=== PATIENT | female | born 1995 | race Caucasian/White ===

== ENCOUNTER 2016-10-18 20:36 | Emergency (ER) | payer MEDICAID, OTHER ==
--- NOTE | 2016-10-18 20:57 | EDM.PDOC ---
ED HPI GENERAL MEDICAL PROBLEM - General Chief Complaint: Gastrointestinal Problem Stated Complaint: FOOD POISONING Time Seen by Provider: 10/18/16 20:57 Source of Information: Reports: Patient - History of Present Illness INITIAL COMMENTS - FREE TEXT/NARRATIVE: HISTORY AND PHYSICAL: History of present illness: []Patient presents with nausea vomiting and intermittent loose stools over the last week, she notes that she had her IUD removed in August she has had intermittent bleeding since spotting today, no fever nausea vomiting chills sweats no chest pain shortness breath headache dizziness palpitation about a urine symptoms Review of systems: As per history of present illness and below otherwise all systems reviewed and negative. Past medical history: As per history of present illness and as reviewed below otherwise noncontributory. Surgical history: As per history of present illness and as reviewed below otherwise noncontributory. Social history: No reported history of drug or alcohol abuse. Family history: As per history of present illness and as reviewed below otherwise noncontributory. Physical exam: HEENT: Atraumatic, normocephalic, pupils reactive, negative for conjunctival pallor or scleral icterus, mucous membranes moist, throat clear, neck supple, nontender, trachea midline. Lungs: Clear to auscultation, breath sounds equal bilaterally, chest nontender. Heart: S1S2, regular, negative for clicks, rubs, or JVD. Abdomen: Soft, nondistended, nontender. Negative for masses or hepatosplenomegaly. Negative for costovertebral tenderness. Pelvis: Stable nontender. Genitourinary: Deferred. Rectal: Deferred. Extremities: Atraumatic, negative for cords or calf pain. Neurovascular unremarkable. Neuro: Awake, alert, oriented. Cranial nerves II through XII unremarkable. Cerebellum unremarkable. Motor and sensory unremarkable throughout. Exam nonfocal. Diagnostics: []Lab as below OB ultrasound Therapeutics: []Liter normal saline bolus Zofran vitamins Vaginal rest Follow-up with OB Impression: Threatened []Vomiting/diarrhea IUP 7 weeks by ultrasound AB otic type O+ EDC June 03, 2017 by ultrasound Definitive disposition and diagnosis as appropriate pending reevaluation and review of above. abdominal area Pain Score (Numeric/FACES): 5 - Related Data Allergies Allergy/AdvReac Type Severity Reaction Status Date / Time amoxicillin Allergy Hives Verified 10/18/16 21:04 Home Meds: Home Meds . 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) Other OB/BYN History: had IUD removed today in surgery Musculoskeletal History: Reports: None Neurological History: Reports: None Endocrine/Metabolic History: Reports: Obesity/BMI 30+ Hematologic History: Reports: None - Infectious Disease History Infectious Disease History: Reports: Chicken Pox - Past Surgical History HEENT Surgical History: Reports: Other (See Below) Female Surgical History: Reports: Section - History Comment History Comment: etoh "occasional" Social & Family History - Family History Family Medical History: Noncontributory - Tobacco Use Smoking Status *Q: Never Smoker - Caffeine Use Caffeine Use: Reports: Energy Drinks - Recreational Drug Use Recreational Drug Use: No ED ROS GENERAL - Review of Systems Review Of Systems: ROS reveals no pertinent complaints other than HPI. ED EXAM, GENERAL - Physical Exam Exam: See Below Course - Vital Signs Last Recorded V/S: Last Vital Signs Temp 35.9 C 10/18/16 20:55 Pulse 72 10/18/16 23:41 Resp 20 10/18/16 23:41 BP 131/81 10/18/16 23:41 Pulse Ox 99 10/18/16 23:41 - Orders/Labs/Meds Orders: Active Orders 24 hr Category Date Time Status OB Ltd 1 or More Fetus [US] Stat Exams 10/18/16 22:47 Taken CULTURE URINE [RM] Stat Lab 10/18/16 22:48 Uncollected Labs: Laboratory Tests 10/18/16 10/18/16 10/18/16 Range/Units 20:37 20:37 20:57 WBC 9.54 (4.0-11.0) K/uL RBC 3.96 L (4.30-5.90) M/uL Hgb 12.5 (12.0-16.0) g/dL Hct 35.6 L (36.0-46.0) % MCV 89.9 (80.0-98.0) fL MCH 31.6 (27.0-32.0) pg MCHC 35.1 (31.0-37.0) g/dL RDW Std Deviation 39.4 (28.0-62.0) fl RDW Coeff of Hari 12 (11.0-15.0) % Plt Count 230 (150-400) K/uL MPV 10.50 (7.40-12.00) fL Neut % (Auto) 63.1 (48.0-80.0) % Lymph % (Auto) 27.5 (16.0-40.0) % [place] % (Auto) 8.3 (0.0-15.0) % Eos % (Auto) 0.9 (0.0-7.0) % Baso % (Auto) 0.2 (0.0-1.5) % Neut # (Auto) 6.0 H (1.4-5.7) K/uL Lymph # (Auto) 2.6 H (0.6-2.4) K/uL [place] # (Auto) 0.8 (0.0-0.8) K/uL Eos # (Auto) 0.1 (0.0-0.7) K/uL Baso # (Auto) 0.0 (0.0-0.1) K/uL Nucleated RBC % 0.0 /100WBC Nucleated RBCs # 0 K/uL Sodium (136-146) mmol/L Potassium (3.5-5.1) mmol/L Chloride (98-110) mmol/L Carbon Dioxide (21-31) mmol/L BUN (6.0-23.0) mg/dL Creatinine (0.6-1.5) mg/dL Est Cr Clr Drug Dosing Estimated GFR (MDRD) ml/min Glucose (60-110) mg/dL Calcium (8.8-10.8) mg/dL Total Bilirubin (0.1-1.5) mg/dL AST (5-40) IU/L ALT (8-54) IU/L Alkaline Phosphatase (40-150) Total Protein (6.0-8.0) g/dL Albumin (3.5-5.0) g/dL Globulin (2.0-3.5) g/dL Albumin/Globulin Ratio (1.3-2.8) HCG, Quant 87036.0 mIU/mL Urine Color Urine Appearance Urine pH (5.0-8.0) Ur Specific [place] (1.001-1.035) Urine Protein (NEGATIVE) mg/dL Urine Glucose (UA) (NEGATIVE) mg/dL Urine Ketones (NEGATIVE) mg/dL Urine Occult Blood (NEGATIVE) Urine Nitrite (NEGATIVE) Urine Bilirubin (NEGATIVE) Urine Urobilinogen (<2.0) EU/dL Ur Leukocyte Esterase (NEGATIVE) Urine RBC (0-2/HPF) Urine WBC (0-5/HPF) Ur Epithelial Cells (NONE-FEW) Urine Bacteria (NEGATIVE) Urine Mucus (NONE-MOD) Urine HCG, Qual (NEGATIVE) Blood Type O POSITIVE 10/18/16 10/18/16 10/18/16 Range/Units 20:57 22:20 22:20 WBC (4.0-11.0) K/uL RBC (4.30-5.90) M/uL Hgb (12.0-16.0) g/dL Hct (36.0-46.0) % MCV (80.0-98.0) fL MCH (27.0-32.0) pg MCHC (31.0-37.0) g/dL RDW Std Deviation (28.0-62.0) fl RDW Coeff of Hari (11.0-15.0) % Plt Count (150-400) K/uL MPV (7.40-12.00) fL Neut % (Auto) (48.0-80.0) % Lymph % (Auto) (16.0-40.0) % Leon % (Auto) (0.0-15.0) % Eos % (Auto) (0.0-7.0) % Baso % (Auto) (0.0-1.5) % Neut # (Auto) (1.4-5.7) K/uL Lymph # (Auto) (0.6-2.4) K/uL [place] # (Auto) (0.0-0.8) K/uL Eos # (Auto) (0.0-0.7) K/uL Baso # (Auto) (0.0-0.1) K/uL Nucleated RBC % /100WBC Nucleated RBCs # K/uL Sodium 138 (136-146) mmol/L Potassium 3.7 (3.5-5.1) mmol/L Chloride 109 (98-110) mmol/L Carbon Dioxide 21 (21-31) mmol/L BUN 13 (6.0-23.0) mg/dL Creatinine 0.7 (0.6-1.5) mg/dL Est Cr Clr Drug Dosing TNP Estimated GFR (MDRD) > 60.0 ml/min Glucose 91 (60-110) mg/dL Calcium 8.9 (8.8-10.8) mg/dL Total Bilirubin 0.2 (0.1-1.5) mg/dL AST 14 (5-40) IU/L ALT 12 (8-54) IU/L Alkaline Phosphatase 58 (40-150) Total Protein 6.5 (6.0-8.0) g/dL Albumin 3.6 (3.5-5.0) g/dL Globulin 2.9 (2.0-3.5) g/dL Albumin/Globulin Ratio 1.2 L (1.3-2.8) HCG, Quant mIU/mL Urine Color YELLOW Urine Appearance CLEAR Urine pH 6.0 (5.0-8.0) Ur Specific [place] 1.025 (1.001-1.035) Urine Protein NEGATIVE (NEGATIVE) mg/dL Urine Glucose (UA) NEGATIVE (NEGATIVE) mg/dL Urine Ketones NEGATIVE (NEGATIVE) mg/dL Urine Occult Blood NEGATIVE (NEGATIVE) Urine Nitrite POSITIVE H (NEGATIVE) Urine Bilirubin NEGATIVE (NEGATIVE) Urine Urobilinogen 0.2 (<2.0) EU/dL Ur Leukocyte Esterase NEGATIVE (NEGATIVE) Urine RBC 0-2 (0-2/HPF) Urine WBC 1-2 (0-5/HPF) Ur Epithelial Cells FEW (NONE-FEW) Urine Bacteria FEW (NEGATIVE) Urine Mucus RARE (NONE-MOD) Urine HCG, Qual POSITIVE (NEGATIVE) Blood Type Meds: Medications Discontinued Medications Generic Name Dose Route Start Last Admin Trade Name Freq PRN Reason Stop Dose Admin Sodium Chloride 1,000 mls @ 999 mls/hr 10/18/16 21:20 10/18/16 21:49 Normal Saline IV 10/18/16 22:20 999 mls/hr STAT ONE Administration Departure - Departure Time of Disposition: 23:55 Disposition: Home, Self-Care 01 Condition: Good Clinical Impression: Intrauterine , Threatened - Discharge Information Forms: ED Department Discharge Additional Instructions: No smoking or alcohol vitamins recommended Zofran for nausea/vomiting Vaginal rest no sexual intercourse tampons or douching, nothing per vagina No heavy lifting Follow-up with primary care as needed Establish OB care [facility] [address] [place] [id number] The following information is given to patients seen in the emergency department who are being discharged to home. This information is to outline your options for follow-up care. We provide all patients seen in our emergency department with a follow-up referral. The need for follow-up, as well as the timing and circumstances, are variable depending upon the specifics of your emergency department visit. If you don't have a primary care physician on staff, we will provide you with a referral. We always advise you to contact your personal physician following an emergency department visit to inform them of the circumstance of the visit and for follow-up with them and/or the need for any referrals to a consulting specialist. The emergency department will also refer you to a specialist when appropriate. This referral assures that you have the opportunity for follow-up care with a specialist. All of these measure are taken in an effort to provide you with optimal care, which includes your follow-up. Under all circumstances we always encourage you to contact your private physician who remains a resource for coordinating your care. When calling for follow-up care, please make the office aware that this follow-up is from your recent emergency room visit. If for any reason you are refused follow-up, please contact the [facility] emergency department at and asked to speak to the emergency department charge nurse. - My Orders Last 24 Hours: My Active Orders 10/18/16 22:47 OB Ltd 1 or More Fetus [US] Stat 10/18/16 22:48 CULTURE URINE [RM] Stat - Assessment/Plan Last 24 Hours: My Active Orders 10/18/16 22:47 OB Ltd 1 or More Fetus [US] Stat 10/18/16 22:48 CULTURE URINE [RM] Stat
[2016-10-18] MEDS ORDERED: Sodium Chloride 0.9% 1,000 ML IV ONE (21:20)
[2016-10-18 21:31] LABS: CHLORIDE,CL 109 mmol/L (98-110); SODIUM,NA 138 mmol/L (136-146)
[2016-10-18 23:42] VITALS: BP 131/81
--- NOTE | 2016-10-19 13:47 | US ---
EXAM DATE: 10/18/16 PATIENT'S AGE: 21 Patient: ALIZA FERGUSON Facility: [place], [place] Site . Site : 1995 Study: US OB Pelvis [id number] 11:27:11 PM Ordering Physician: Inna Tirado Final Report: INDICATION: Spotting, positive HCG TECHNIQUE: Ultrasound OB pelvis transabdominal and transvaginal. Real-time loera-scale imaging of the pelvis was performed. COMPARISON: None FINDINGS: Sonographic imaging demonstrates a single living intrauterine gestation. The embryo demonstrates a regular cardiac rate measuring 135 beats per minute. The embryo`s crown rump length measurement of 1.1 cm corresponds to a gestational age of 7 weeks 2 days with a sonographic due date of June 03, 2017. There is a normal appearing yolk sac. There are no gross abnormalities noted within the embryo at this early state of development. The placenta has not yet developed. The gestational sac has a normal appearance and there is no evidence of a perigestational hemorrhage. The amount of fluid within the sac appears appropriate for gestational age. The cervix is closed. There is a 2.2 cm fibroid within the anterior wall of the uterus. The ovaries are of normal size. Corpus luteum cyst seen on the right ovary. There are no suspicious fluid collections noted in the cul-de-sac. IMPRESSION: Single viable intrauterine . Gestational age is 7 weeks 2 days with a sonographic due date of June 03, 2017. Small uterine fibroid. Dictated by Kaci Thomas MD @ Oct 18 2016 11:34PM (Electronic Signature) Report Signed by Proxy. [facility]
== END 2016-10-19 00:18 | disposition home or self-care (01) ==
LOC: MW.ED 20:36
DX: O20.0 Threatened abortion (principal); E66.9 Obesity, unspecified; Z88.1 Allergy status to other antibiotic agents; Z68.27 Body mass index [BMI] 27.0-27.9, adult; Z3A.01 Less than 8 weeks gestation of pregnancy
CPT/HCPCS: 36415; 76815; 80053; 81001; 81025; 84702; 85025; 86900; 86901; 96360; 99284; J7040; 99283

== ENCOUNTER 2016-12-03 15:28 | Emergency (ER) | payer MEDICAID, OTHER ==
--- NOTE | 2016-12-03 17:00 | EDM.PDOC ---
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 LMP August 24, 2016. C/o Lower back discomfort and abdominal cramping. Denies fever and chills. No nausea or vomiting. No pelvic pain or discharge. She complains of a feeling of pressure when she urinates. No burning with urination, hematuria or urinary frequency. SpAb 1 LC2] Review of systems: As per history of present illness and below otherwise all systems reviewed and negative. Past medical history: As per history of present illness and as reviewed below otherwise noncontributory. Surgical history: As per history of present illness and as reviewed below otherwise noncontributory. Social history: No reported history of drug or alcohol abuse. Family history: As per history of present illness and as reviewed below otherwise noncontributory. Physical exam: HEENT: Atraumatic, normocephalic. Lungs: Clear to auscultation, breath sounds equal bilaterally, chest nontender. Heart: S1S2, regular, negative for clicks, rubs, or JVD. Abdomen: Bowel sounds are normoactive throughout. Soft, nondistended, nontender. Fundal height mid way between symphisis pubis and umbilicus. Negative for costovertebral tenderness. Pelvis: Stable nontender. Genitourinary: Deferred. Rectal: Deferred. Extremities: Atraumatic, negative for cords or calf pain. Neurovascular unremarkable. Neuro: Awake, alert, oriented. Cranial nerves II through XII unremarkable. Cerebellum unremarkable. Motor and sensory unremarkable throughout. Exam nonfocal. Diagnostics: [CBC, UA, urine culture, OB ultrasound, Hcg qualitative, Hcg quantitative] Impression: [viable intrauterine ] Plan: [14 week 3 day according to dates, U/S verifies single IUP with gestational age of 14 weeks 4 days. The patient is advised of these findings and encouraged to follow-up with a local OB. Nursing staff schedule patient to be seen on Wednesday. Patient is in agreement with today's plan and discussion all of her questions are answered and concerns are addressed. ] Definitive disposition and diagnosis as appropriate pending reevaluation and review of above. . Abdomen/Pelvic Pain Score (Numeric/FACES): 2 - Related Data Allergies Allergy/AdvReac Type Severity Reaction Status Date / Time amoxicillin Allergy Hives Verified 12/03/16 17:14 Home Meds: Home Meds . 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) Other OB/BYN History: had IUD removed today in surgery Musculoskeletal History: Reports: None Neurological History: Reports: None Psychiatric History: Reports: None Endocrine/Metabolic History: Reports: Obesity/BMI 30+ Hematologic History: Reports: None Immunologic History: Reports: None Oncologic (Cancer) History: Reports: None Dermatologic History: Reports: None - Infectious Disease History Infectious Disease History: Reports: Chicken Pox - Past Surgical History HEENT Surgical History: Reports: Other (See Below) Female Surgical History: Reports: Section - History Comment History Comment: etoh "occasional" Social & Family History - Family History Family Medical History: Noncontributory - Tobacco Use Smoking Status *Q: Never Smoker - Caffeine Use Caffeine Use: Reports: Energy Drinks - Recreational Drug Use Recreational Drug Use: No ED ROS GENERAL - Review of Systems Review Of Systems: ROS reveals no pertinent complaints other than HPI. ED EXAM - Physical Exam Exam: See Below Course - Vital Signs Last Recorded V/S: Last Vital Signs Temp 98.0 F 12/03/16 19:50 Pulse 72 12/03/16 19:50 Resp 16 12/03/16 19:50 BP 124/72 12/03/16 19:50 Pulse Ox 97 12/03/16 19:50 - Orders/Labs/Meds Orders: Active Orders 24 hr Category Date Time Status OB 1st Tri Sgl 1st Gest [US] Stat Exams 12/03/16 16:58 Taken CULTURE URINE [RM] Stat Lab 12/03/16 16:40 Received Labs: Laboratory Tests 12/03/16 12/03/16 12/03/16 Range/Units 16:40 17:01 17:01 WBC 6.48 (4.0-11.0) K/uL RBC 3.70 L (4.30-5.90) M/uL Hgb 11.5 L (12.0-16.0) g/dL Hct 33.5 L (36.0-46.0) % MCV 90.5 (80.0-98.0) fL MCH 31.1 (27.0-32.0) pg MCHC 34.3 (31.0-37.0) g/dL RDW Std Deviation 40.4 (28.0-62.0) fl RDW Coeff of Hari 12 (11.0-15.0) % Plt Count 206 (150-400) K/uL MPV 10.10 (7.40-12.00) fL Neut % (Auto) 63.1 (48.0-80.0) % Lymph % (Auto) 27.5 (16.0-40.0) % [place] % (Auto) 8.3 (0.0-15.0) % Eos % (Auto) 0.9 (0.0-7.0) % Baso % (Auto) 0.2 (0.0-1.5) % Neut # (Auto) 4.1 (1.4-5.7) K/uL Lymph # (Auto) 1.8 (0.6-2.4) K/uL [place] # (Auto) 0.5 (0.0-0.8) K/uL Eos # (Auto) 0.1 (0.0-0.7) K/uL Baso # (Auto) 0.0 (0.0-0.1) K/uL Nucleated RBC % 0.0 /100WBC Nucleated RBCs # 0 K/uL HCG, Quant 53196.4 mIU/mL Urine Color YELLOW Urine Appearance CLEAR Urine pH 6.0 (5.0-8.0) Ur Specific [place] 1.025 (1.001-1.035) Urine Protein NEGATIVE (NEGATIVE) mg/dL Urine Glucose (UA) NEGATIVE (NEGATIVE) mg/dL Urine Ketones NEGATIVE (NEGATIVE) mg/dL Urine Occult Blood NEGATIVE (NEGATIVE) Urine Nitrite NEGATIVE (NEGATIVE) Urine Bilirubin NEGATIVE (NEGATIVE) Urine Urobilinogen 0.2 (<2.0) EU/dL Ur Leukocyte Esterase NEGATIVE (NEGATIVE) Urine RBC 0-1 (0-2/HPF) Urine WBC 0-2 (0-5/HPF) Ur Epithelial Cells FEW (NONE-FEW) Amorphous Sediment FEW (NEGATIVE) Urine Bacteria RARE (NEGATIVE) Departure - Departure Time of Disposition: 19:15 Disposition: Home, Self-Care 01 Condition: Good Clinical Impression: 14 weeks gestation of - Discharge Information Instructions: Second Trimester of Referrals: PCP,None [Primary Care Provider] - Forms: ED Department Discharge Additional Instructions: Follow up with Hannah Samuel as you have scheduled on 12/08/16. Return to ER as needed as discussed. - My Orders Last 24 Hours: My Active Orders 12/03/16 16:40 CULTURE URINE [RM] Stat 12/03/16 16:58 OB 1st Tri Sgl 1st Gest [US] Stat - Assessment/Plan Last 24 Hours: My Active Orders 12/03/16 16:40 CULTURE URINE [RM] Stat 12/03/16 16:58 OB 1st Tri Sgl 1st Gest [US] Stat
[2016-12-03 19:50] VITALS: BP 124/72
--- NOTE | 2016-12-04 10:28 | US ---
EXAM DATE: 12/03/16 PATIENT'S AGE: 21 Patient: ALIZA FERGUSON Facility: [place], [place] Site . Site : 1995 Study: US OB Pelvis [id number] 6:31:35 PM Ordering Physician: Doctor Biswas Final Report: INDICATION: CRAMPING 14 WK INDICATION: Cramping TECHNIQUE: Ultrasound OB pelvis transabdominal. Real time loera scale imaging of the fetus was performed as well as color Doppler and spectral Doppler analysis of the umbilical artery. COMPARISON: None FINDINGS: LMP: 08/27/2016 Gestational age by LMP: 14 weeks 0 days Estimated due date by LMP: 06/03/2017 Sonographic imaging demonstrates a single living intrauterine gestation. Fetus demonstrates a regular cardiac rate of beats per minute. Fetus has a cephalic orientation. The placenta lies procedure without evidence of placenta previa. Amniotic fluid volume appears normal MICHAEL. Cervix length 3.58 centimeters. The composite ultrasound gestational age is calculated at 14 weeks 4 days with an estimated sonographic due date of 05/30/2017. The estimated weight is 96 grams. The following biometric measurements were obtained: Biparietal diameter: 2.62 centimeters consistent with gestational age of 14 weeks 5 days Head circumference: 10.13 centimeters consistent with a gestational age of 14 weeks 6 days Abdominal circumference: 8.37 centimeters consistent with gestational age of 14 weeks 5 days. Femur length: 1 point IV centimeters consistent with gestational age of 14 weeks 0 days anatomy not requested. Anterior uterine wall fibroid. IMPRESSION: Single intrauterine with a composite gestational age of 14 weeks 4 days. heart rate 163 beats per minute. Anterior uterine wall fibroid. Dictated by Tj Aguilar MD @ 12/03/2016 7:10:59 PM Prelim Report By Dr. Tj Aguilar @ 12/03/2016 7:11:08 PM Dictated by: Tj Aguilar MD @ 12/03/2016 21:21:41 (Electronic Signature) Report Signed by Proxy. [facility]
== END 2016-12-03 19:30 | disposition home or self-care (01) ==
LOC: MW.ED 15:28
DX: O99.89 Other specified diseases and conditions complicating pregnancy, childbirth and the puerperium (principal); R10.30 Lower abdominal pain, unspecified; Z88.1 Allergy status to other antibiotic agents; Z3A.14 14 weeks gestation of pregnancy
CPT/HCPCS: 36415; 76801; 76801-26; 81001; 84702; 85025; 87086; 99283; 99284-25

== ENCOUNTER 2016-12-18 02:08 | Observation (INO) | payer SELFPAY ==
--- NOTE | 2016-12-18 02:16 | EDM.PDOC ---
ED HPI GENERAL MEDICAL PROBLEM - General Chief Complaint: Back Pain or Injury Stated Complaint: LOWER RIGHT BACK PAIN Time Seen by Provider: 12/18/16 02:16 - History of Present Illness INITIAL COMMENTS - FREE TEXT/NARRATIVE: HISTORY AND PHYSICAL: History of present illness: The patient is a 21-year-old female who is a 3 para 2 who presents at approximately 16 weeks 5 days by an ultrasound done just 2 weeks ago and is here in the ED with right lower back and flank pain. Patient said she had a normal day yesterday without any trauma or systemic complaints and then suddenly at 1:00 in the morning she started having the discomfort. She has no hematuria no pelvic pain no vaginal bleeding and no dysuria or frequency. Patient thought maybe she was starting to have a bladder infection. Patient did not take anything for the pain prior to coming here and had 1 small emesis here which she believes is secondary to her pain. Patient denies that the pain radiates to her legs or to her lower abdomen. Please note that the patient was seen here in the emergency department on December 03, 15 days ago, and had a CBC UA with urine culture which was negative for quantitative beta and a pelvic ultrasound which documented a live IUP at 14 weeks 4 days. By that ultrasound she would be 16 weeks 5 days currently. Patient has had movement Review of systems: As per history of present illness and below otherwise all systems reviewed and negative. Past medical history: As per history of present illness and as reviewed below otherwise noncontributory. Surgical history: As per history of present illness and as reviewed below otherwise noncontributory. Social history: No reported history of drug or alcohol abuse. Family history: As per history of present illness and as reviewed below otherwise noncontributory. Physical exam: Gen.: Well-developed well-nourished female who seems somewhat anxious in the room but is nontoxic and vital signs were noted by me. Patient use the rolling on the bed or standing at bedside bent over to 90 saying that she is having discomfort. She moves very easily. HEENT: Atraumatic, normocephalic, negative for conjunctival pallor or scleral icterus, mucous membranes moist, throat clear, neck supple, nontender, trachea midline. Lungs: Clear to auscultation, breath sounds equal bilaterally, chest nontender. Heart: S1S2, regular rate and rhythm no overt murmurs Abdomen: Soft, nondistended, nontender. Negative for masses or hepatosplenomegaly. Negative for costovertebral tenderness. Pelvis: Stable nontender. Genitourinary: Deferred. Rectal: Deferred. Extremities: Atraumatic, negative for cords or calf pain. Neurovascular unremarkable. Neuro: Awake, alert, oriented. Cranial nerves II through XII unremarkable. Cerebellum unremarkable. Motor and sensory unremarkable throughout. Exam nonfocal. Diagnostics: heart tones, UA, urine culture CBC CMP renal ultrasound Therapeutics: IV fluids Zofran morphine Ancef heart tones per nursing =[phone]: I discussed this case briefly with our management liaison OB M.D., Dr. Everett and in light of the patient's discomfort she says that I can give her morphine for pain and she will be available as needed pending the results of our testing 0400 and 0409: I discussed this case again with Dr. Everett and she will be admitting the patient as an observation and Dr. Chaves will be performing a formal consult. 0407: Dr. Chaves was notified about this patient and will prefer to be the strategic planning consultant with OB admitting her as he has expressed some discomfort with managing pain and fluid hydration in her . I will put an order for a formal consult and he will review the ultrasound and see the patient in the morning. He said at this point if it is a kidney stone he would likely not do intervention and try to see if that would pass on its own. I have discussed with the patient all of these conversations in the care plan for admission. Impression: Right flank pain with right hydronephrosis likely secondary to kidney stone/ ureteral lithiasis, 16 weeks stable Definitive disposition and diagnosis as appropriate pending reevaluation and review of above. 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: , Other (See Below) Other OB/BYN History: had IUD removed today in surgery Musculoskeletal History: Reports: None Neurological History: Reports: None Psychiatric History: Reports: None Endocrine/Metabolic History: Reports: Obesity/BMI 30+ Hematologic History: Reports: None Immunologic History: Reports: None Oncologic (Cancer) History: Reports: None Dermatologic History: Reports: None - Infectious Disease History Infectious Disease History: Reports: Chicken Pox - Past Surgical History HEENT Surgical History: Reports: Other (See Below) Female Surgical History: Reports: Section - History Comment History Comment: etoh "occasional" Social & Family History - Family History Family Medical History: Noncontributory - Tobacco Use Smoking Status *Q: Never Smoker - Caffeine Use Caffeine Use: Reports: Energy Drinks - Recreational Drug Use Recreational Drug Use: No ED ROS GENERAL - Review of Systems Review Of Systems: ROS reveals no pertinent complaints other than HPI. ED EXAM, GENERAL - Physical Exam Exam: See Below (See dictation) Course - Vital Signs Last Recorded V/S: Last Vital Signs Temp 35.6 C 12/18/16 02:11 Pulse 78 12/18/16 02:11 Resp 20 12/18/16 02:11 BP 122/79 12/18/16 02:11 Pulse Ox 98 12/18/16 02:11 - Orders/Labs/Meds Orders: Active Orders 24 hr Category Date Time Status Communication Order [RC] STAT Care 12/18/16 02:15 Active Retroperitoneal Ltd [US] Stat Exams 12/18/16 02:29 Taken CULTURE URINE [RM] Stat Lab 12/18/16 02:37 Received Sodium Chloride 0.9% [Saline Flush] Med 12/18/16 02:29 Active 10 ml FLUSH ASDIRECTED PRN Sodium Chloride 0.9% [Saline Flush] Med 12/18/16 02:29 Active 2.5 ml FLUSH ASDIRECTED PRN ceFAZolin [Ancef] 1,000 mg Med 12/18/16 04:07 Ordered Sodium Chloride 0.9% [Normal Saline] 50 ml IV ONETIME Saline Lock Insert [OM.PC] Stat Oth 12/18/16 02:26 Ordered Medication Orders Cefazolin Sodium 1,000 mg/ (Sodium Chloride) 50 mls @ 200 mls/hr IV ONETIME ONE Stop: 12/18/16 04:21 Sodium Chloride (Saline Flush) 10 ml FLUSH ASDIRECTED PRN PRN Reason: Keep Vein Open Last Admin: 12/18/16 02:50 Dose: 10 ml Sodium Chloride (Saline Flush) 2.5 ml FLUSH ASDIRECTED PRN PRN Reason: Keep Vein Open Last Admin: 12/18/16 02:51 Dose: 2.5 ml Labs: Laboratory Tests 12/18/16 12/18/16 12/18/16 Range/Units 02:37 02:44 02:44 WBC 11.02 H (4.0-11.0) K/uL RBC 3.77 L (4.30-5.90) M/uL Hgb 11.9 L (12.0-16.0) g/dL Hct 33.5 L (36.0-46.0) % MCV 88.9 (80.0-98.0) fL MCH 31.6 (27.0-32.0) pg MCHC 35.5 (31.0-37.0) g/dL RDW Std Deviation 38.8 (28.0-62.0) fl RDW Coeff of Hari 12 (11.0-15.0) % Plt Count 227 (150-400) K/uL MPV 10.20 (7.40-12.00) fL Neut % (Auto) 63.4 (48.0-80.0) % Lymph % (Auto) 27.7 (16.0-40.0) % [place] % (Auto) 8.1 (0.0-15.0) % Eos % (Auto) 0.7 (0.0-7.0) % Baso % (Auto) 0.1 (0.0-1.5) % Neut # (Auto) 7.0 H (1.4-5.7) K/uL Lymph # (Auto) 3.1 H (0.6-2.4) K/uL [place] # (Auto) 0.9 H (0.0-0.8) K/uL Eos # (Auto) 0.1 (0.0-0.7) K/uL Baso # (Auto) 0.0 (0.0-0.1) K/uL Nucleated RBC % 0.0 /100WBC Nucleated RBCs # 0 K/uL Sodium 138 (136-146) mmol/L Potassium 3.6 (3.5-5.1) mmol/L Chloride 108 (98-110) mmol/L Carbon Dioxide 21 (21-31) mmol/L BUN 13 (6.0-23.0) mg/dL Creatinine 0.6 (0.6-1.5) mg/dL Est Cr Clr Drug Dosing 110.98 mL/min Estimated GFR (MDRD) > 60.0 ml/min Glucose 96 (60-110) mg/dL Calcium 9.3 (8.8-10.8) mg/dL Total Bilirubin 0.3 (0.1-1.5) mg/dL AST 15 (5-40) IU/L ALT 10 (8-54) IU/L Alkaline Phosphatase 53 (40-150) Total Protein 6.4 (6.0-8.0) g/dL Albumin 3.5 (3.5-5.0) g/dL Globulin 2.9 (2.0-3.5) g/dL Albumin/Globulin Ratio 1.2 L (1.3-2.8) Urine Color YELLOW Urine Appearance HAZY Urine pH 6.0 (5.0-8.0) Ur Specific [place] >= 1.030 (1.001-1.035) Urine Protein TRACE (NEGATIVE) mg/dL Urine Glucose (UA) NEGATIVE (NEGATIVE) mg/dL Urine Ketones NEGATIVE (NEGATIVE) mg/dL Urine Occult Blood TRACE-INTACT (NEGATIVE) Urine Nitrite NEGATIVE (NEGATIVE) Urine Bilirubin NEGATIVE (NEGATIVE) Urine Urobilinogen 0.2 (<2.0) EU/dL Ur Leukocyte Esterase NEGATIVE (NEGATIVE) Urine RBC 6-8 (0-2/HPF) Urine WBC 1-2 (0-5/HPF) Ur Epithelial Cells FEW (NONE-FEW) Urine Bacteria 1+ H (NEGATIVE) Meds: Medications Generic Name Dose Route Start Last Admin Trade Name Freq PRN Reason Stop Dose Admin Cefazolin Sodium 1,000 mg/ 50 mls @ 200 mls/hr 12/18/16 04:07 Sodium Chloride IV 12/18/16 04:21 ONETIME ONE Sodium Chloride 10 ml 12/18/16 02:29 12/18/16 02:50 Saline Flush FLUSH 10 ml ASDIRECTED PRN Administration Keep Vein Open Sodium Chloride 2.5 ml 12/18/16 02:29 12/18/16 02:51 Saline Flush FLUSH 2.5 ml ASDIRECTED PRN Administration Keep Vein Open Discontinued Medications Generic Name Dose Route Start Last Admin Trade Name Elayne PRN Reason Stop Dose Admin Acetaminophen 650 mg 12/18/16 02:30 12/18/16 02:51 Tylenol PO 12/18/16 02:31 Not Given NOW ONE Sodium Chloride 1,000 mls @ 999 mls/hr 12/18/16 02:30 12/18/16 02:43 Normal Saline IV 12/18/16 03:30 999 mls/hr STAT ONE Administration Morphine Sulfate 2 mg 12/18/16 02:37 12/18/16 02:47 Morphine IVPUSH 12/18/16 02:38 2 mg ONETIME ONE Administration Morphine Sulfate 2 mg 12/18/16 03:57 12/18/16 04:03 Morphine IVPUSH 12/18/16 03:58 2 mg ONETIME ONE Administration Ondansetron HCl 4 mg 12/18/16 02:30 12/18/16 02:50 Zofran IVPUSH 12/18/16 02:31 4 mg ONETIME ONE Administration Departure - Departure Time of Disposition: 04:12 Disposition: Refer to Observation Condition: Good Clinical Impression: Second trimester , Ureterolithiasis - Discharge Information Referrals: PCP,None [Primary Care Provider] - Forms: ED Department Discharge - My Orders Last 24 Hours: My Active Orders 12/18/16 02:15 Communication Order [RC] STAT 12/18/16 02:26 Saline Lock Insert [OM.PC] Stat 12/18/16 02:29 Retroperitoneal Ltd [US] Stat Sodium Chloride 0.9% [Saline Flush] 10 ml FLUSH ASDIRECTED PRN Sodium Chloride 0.9% [Saline Flush] 2.5 ml FLUSH ASDIRECTED PRN 12/18/16 02:37 CULTURE URINE [RM] Stat 12/18/16 04:07 ceFAZolin [Ancef] 1,000 mg Sodium Chloride 0.9% [Normal Saline] 50 ml IV ONETIME - Assessment/Plan Last 24 Hours: My Active Orders 12/18/16 02:15 Communication Order [RC] STAT 12/18/16 02:26 Saline Lock Insert [OM.PC] Stat 12/18/16 02:29 Retroperitoneal Ltd [US] Stat Sodium Chloride 0.9% [Saline Flush] 10 ml FLUSH ASDIRECTED PRN Sodium Chloride 0.9% [Saline Flush] 2.5 ml FLUSH ASDIRECTED PRN 12/18/16 02:37 CULTURE URINE [RM] Stat 12/18/16 04:07 ceFAZolin [Ancef] 1,000 mg Sodium Chloride 0.9% [Normal Saline] 50 ml IV ONETIME
[2016-12-18] MEDS ORDERED: Sodium Chloride 0.9% 2.5 ML Syringe FLUSH PRN (02:29)
[2016-12-18] MEDS ORDERED: Sodium Chloride 0.9% 10 ML Syringe FLUSH PRN (02:29)
[2016-12-18] MEDS ORDERED: Sodium Chloride 0.9% 1,000 ML IV ONE (02:30)
[2016-12-18] MEDS ORDERED: Ondansetron 4 MG/2 ML SDV IVPUSH ONE (02:30)
[2016-12-18] MEDS ORDERED: Acetaminophen 325 MG Tab PO ONE (02:30)
[2016-12-18] MEDS ORDERED: Morphine 2 MG/ML Syringe IVPUSH ONE ×3 (02:37→04:16)
[2016-12-18 03:14] LABS: CHLORIDE,CL 108 mmol/L (98-110); SODIUM,NA 138 mmol/L (136-146)
[2016-12-18] MEDS ORDERED: Sodium Chloride 0.9% 1,000 ML IV SCH (04:15)
[2016-12-18] MEDS ORDERED: Tamsulosin 0.4 MG Cap.ER PO ONE (04:17)
[2016-12-18] MEDS ORDERED: ceFAZolin 1 GM in Premix Bag 1 BAG IV ONE (04:19)
[2016-12-18] MEDS ORDERED: HYDROmorphone 2 MG/ML Syringe IVPUSH PRN (05:35)
[2016-12-18] MEDS ORDERED: Lactated Ringers 1,000 ML IV SCH (05:45)
--- NOTE | 2016-12-18 08:44 | PCM.HP ---
H&P History of Present Illness - General Date of Service: 12/18/16 Admit Problem/Dx: Admission Diagnosis/Problem Admission Diagnosis/Problem Kidney stone - History of Present Illness Initial Comments - Free Text/Narative: 21 yo @ 16w5d complaining of sudden onset of right back pain since 1am , patient states pain is constant and does not radiate she denies dysuria or urgency. patient had renal sonogram done which showed ?? stone in the right [place] . Urology consulted and say he will see patient today Onset of Symptoms: Reports: Sudden Right Lower Back Pain Score (Numeric/FACES): 4 - Related Data Allergies/Adverse Reactions: Allergies Allergy/AdvReac Type Severity Reaction Status Date / Time amoxicillin Allergy Hives Verified 12/03/16 17:14 Home Medications: Home Meds Vit W-Ca,Fe,FA(<1 mg) [ Vitamins] 1 each PO DAILY 12/18/16 [ History] Past Medical History - Past Health History Medical/Surgical History: Denies Medical/Surgical History HEENT History: Reports: None Cardiovascular History: Reports: None Respiratory History: Reports: None Gastrointestinal History: Reports: None Genitourinary History: Reports: None Other Genitourinary History: 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: , Other (See Below) Other OB/BYN History: had IUD removed today in surgery Musculoskeletal History: Reports: None Neurological History: Reports: None Psychiatric History: Reports: None Endocrine/Metabolic History: Reports: Obesity/BMI 30+ Hematologic History: Reports: None Immunologic History: Reports: None Oncologic (Cancer) History: Reports: None Dermatologic History: Reports: None - Infectious Disease History Infectious Disease History: Reports: Chicken Pox - Past Surgical History Head Surgeries/Procedures: Reports: None HEENT Surgical History: Reports: Other (See Below) Female Surgical History: Reports: Section - History Comment History Comment: etoh "occasional" Social & Family History - Family History Family Medical History: Noncontributory - Tobacco Use Smoking Status *Q: Never Smoker Second Hand Smoke Exposure: No - Caffeine Use Caffeine Use: Reports: Energy Drinks - Recreational Drug Use Recreational Drug Use: No H&P Review of Systems - Review of Systems: Review Of Systems: See Below General: Reports: No Symptoms HEENT: Reports: No Symptoms Pulmonary: Reports: No Symptoms Cardiovascular: Reports: No Symptoms Gastrointestinal: Reports: No Symptoms Genitourinary: Reports: Other (Mild lower back pain ) Exam - Exam Exam: See Below - Vital Signs Vital Signs: Last Vital Signs Temp 36.3 C 12/18/16 04:40 Pulse 80 12/18/16 04:40 Resp 16 12/18/16 04:40 BP 122/72 12/18/16 04:40 Pulse Ox 100 12/18/16 04:40 Weight: 72.665 kg - Exam General: Alert, Oriented Neck: Supple Lungs: Clear to Auscultation, Normal Respiratory Effort Cardiovascular: Regular Rate, Regular Rhythm GI/Abdominal Exam: Normal Bowel Sounds, Other (No CVA tenderness ) - Patient Data Result Diagrams: 12/18/16 02:44 12/18/16 02:44 *Q Meaningful Use (ADM) - VTE *Q VTE Criteria *Q: - Stroke *Q Stroke Criteria *Q: - AMI *Q AMI Criteria *Q: - Problem List (1) Ureterolithiasis SNOMED Code(s): 25581942 ICD Code: N20.1 - CALCULUS OF URETER Status: Acute Current Visit: Yes Problem List Initiated/Reviewed/Updated: Yes Orders Last 24hrs: Active Orders 24 hr Category Date Time Status Notify Provider Consults [RC] ASDIRECTED Care 12/18/16 04:17 Active Strain Urine [RC] ASDIRECTED Care 12/18/16 08:18 Active Consult to Physician [CONS] Stat Cons 12/18/16 04:16 Active Regular Diet [DIET] Diet 12/18/16 Breakfast Active HYDROmorphone [Dilaudid] Med 12/18/16 05:35 Active 2 mg IVPUSH Q4H PRN Lactated Ringers [Ringers, Lactated] 1,000 ml Med 12/18/16 05:45 Active IV ASDIRECTED Medication Orders Hydromorphone HCl (Dilaudid) 2 mg IVPUSH Q4H PRN PRN Reason: Pain Sodium Chloride (Normal Saline) 1,000 mls @ 150 mls/hr IV ASDIRECTED TIERA Last Admin: 12/18/16 04:25 Dose: 150 mls/hr Lactated Ringer's (Ringers, Lactated) 1,000 mls @ 150 mls/hr IV ASDIRECTED TIERA Last Admin: 12/18/16 06:00 Dose: 150 mls/hr Sodium Chloride (Saline Flush) 10 ml FLUSH ASDIRECTED PRN PRN Reason: Keep Vein Open Last Admin: 12/18/16 02:50 Dose: 10 ml Sodium Chloride (Saline Flush) 2.5 ml FLUSH ASDIRECTED PRN PRN Reason: Keep Vein Open Last Admin: 12/18/16 02:51 Dose: 2.5 ml Assessment/Plan Comment:: 21 yo here for Right back pain , possible ureterolithasis, pain improved Plan COntinnue Hydration PRN pain medication with tylenol and Narcotic Follow urology consult heart check daily If patient improves will d/c home today Strain urine
[2016-12-18] MEDS ORDERED: Acetaminophen 325 MG Tab PO PRN (08:47)
--- NOTE | 2016-12-18 10:05 | US ---
EXAM DATE: 12/18/16 PATIENT'S AGE: 21 Patient: ALIZA FERGUSON Facility: [place], [place] Site . Site : 1995 Study: US Abdomen RENAL [id number]/18/2016 3:41:52 AM Ordering Physician: Doctor Biswas Final Report: INDICATION: Right flank pain. 16 weeks . TECHNIQUE: Ultrasound renal bilateral. Olivia-scale and color Doppler sonographic images were acquired of the kidneys and urinary bladder. COMPARISON: None. FINDINGS: Right kidney is 11.6 cm in length. Left kidney is 11.8 cm in length. There is moderate right hydronephrosis with dilatation of the proximal right ureter. Possible stone versus fold in the proximal right ureter near the right ureteropelvic junction. No left-sided hydronephrosis. The suboptimally distended urinary bladder as imaged is unremarkable. Suspected right ureteral jet is noted. Technically difficult study due to patient pain and movement. IMPRESSION: Moderate right hydronephrosis and dilatation of the proximal right ureter. Stone versus fold in the proximal right ureter near the ureteropelvic junction. Correlation with urinalysis may prove useful. No left hydronephrosis. Dictated by Low Hernandez MD @ 12/18/2016 3:49:13 AM Dictated by: Low Hernandez MD @ 12/18/2016 03:49:40 (Electronic Signature) Report Signed by Proxy. [facility]OSPITALMike
[2016-12-18 11:50] VITALS: BP 91/50
--- NOTE | 2016-12-18 18:31 | PCM.SN ---
- Free Text/Narrative Note: 21 yo @ 16w5d admitted for pain managment due to kidney stones. she was evaluated by urology today. Impression is kidney stone. since pain is improved. patient does not need intervention at this time and can be discharged home on Tylenol 3. patient given precautions and informed to return to ER if she has develops begins to have sharp pain that is not controlled by the medication.
--- NOTE | 2016-12-18 18:39 | CONS ---
DATE OF CONSULTATION: DATE OF : 1995 PRIMARY CARE PHYSICIAN: None PCP HISTORY OF PRESENT ILLNESS: A [id number], 17 weeks . She started having sudden onset of right flank pain early this morning, was seen in the emergency room, had an ultrasound that showed [id number] hydronephrosis on the right. Left side was normal. The right upper ureter appeared slightly dilated. UA was not suggestive of UTI. She is afebrile. She was admitted to the hospital for pain control and consultation. I saw her this morning. She appears comfortable. She has been taking just plain Tylenol for pain. PAST MEDICAL HISTORY: Essentially negative. She has not had urinary stones in the past. She has been present before. PHYSICAL EXAMINATION: GENERAL: Examination shows mild right CVA tenderness. ABDOMEN: Soft otherwise. most likely ureteral stone, relatively pain free. Stone was not visualized on the ultrasound. She is early in her . Good possibility that the stone is relatively small. She is sent home on plain Tylenol and occasionally Tylenol with codeine. She is also sent home with a strainer and instructed to drink plenty of fluids. If the pain comes back, she is to contact her primary care provider Dr. Oconnor SCHEDULING ASSISTANT. [place] / [place] /[phone]
== END 2016-12-18 12:45 | disposition home or self-care (01) ==
LOC: MW.ED 02:08 → MW.MS 04:13
PROVIDERS: ADMIT Obstetrics & Gynecology; ATTEND Obstetrics & Gynecology
DX: O26.832 Pregnancy related renal disease, second trimester (principal); N13.2 Hydronephrosis with renal and ureteral calculous obstruction; Z3A.16 16 weeks gestation of pregnancy; Z88.0 Allergy status to penicillin; Z79.899 Other long term (current) drug therapy; Z98.890 Other specified postprocedural states
CPT/HCPCS: 36415; 76775; 80053; 81001; 85025; 87086; 96361; 96365; 96375; 96376; 99285; A9270; J0690; J2270; J2405; J7040; J7120; 99284; G0378

== ENCOUNTER 2017-05-25 09:22 | Inpatient (IN) | payer MEDICAID ==
--- NOTE | 2017-05-25 09:58 | PCM.LDHP ---
L&D History of Present Illness - General Date of Service: 05/25/17 Admit Problem/Dx: Admission Diagnosis/Problem Admission Diagnosis/Problem Source of Information: Patient History Limitations: Reports: No Limitations - History of Present Illness Improves with: Reports: None Worsens with: Reports: None Associated Symptoms: Reports: N - Related Data Allergies/Adverse Reactions: Allergies Allergy/AdvReac Type Severity Reaction Status Date / Time amoxicillin Allergy Hives Verified 05/20/17 09:07 Home Medications: Home Meds Vit W-Ca,Fe,FA(<1 mg) [ Vitamins] 1 each PO DAILY 12/18/16 [ History] Past Medical History - Past Health History Medical/Surgical History: Denies Medical/Surgical History HEENT History: Reports: None Cardiovascular History: Reports: None Respiratory History: Reports: None Gastrointestinal History: Reports: None Other Gastrointestinal History: heartburn during Genitourinary History: Reports: None Other Genitourinary History: 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: , 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 (See Below) Other OB/BYN History: had IUD removed today in surgery Musculoskeletal History: Reports: None Neurological History: Reports: None Psychiatric History: Reports: None Endocrine/Metabolic History: Reports: Obesity/BMI 30+ Hematologic History: Reports: None Immunologic History: Reports: None Oncologic (Cancer) History: Reports: None Dermatologic History: Reports: None - Infectious Disease History Infectious Disease History: Reports: Chicken Pox - Past Surgical History Head Surgeries/Procedures: Reports: None Female Surgical History: Reports: Section - History Comment History Comment: etoh "occasional" Social & Family History - Family History Family Medical History: Noncontributory - Tobacco Use Smoking Status *Q: Never Smoker Second Hand Smoke Exposure: No - Caffeine Use Caffeine Use: Reports: Energy Drinks - Recreational Drug Use Recreational Drug Use: No H&P Review of Systems - Review of Systems: Review Of Systems: See Below General: Reports: No Symptoms HEENT: Reports: No Symptoms Pulmonary: Reports: No Symptoms Cardiovascular: Reports: No Symptoms Gastrointestinal: Reports: No Symptoms Genitourinary: Reports: No Symptoms Musculoskeletal: Reports: No Symptoms Skin: Reports: No Symptoms Psychiatric: Reports: No Symptoms Neurological: Reports: No Symptoms Hematologic/Lymphatic: Reports: No Symptoms Immunologic: Reports: No Symptoms L&D Exam - Exam Exam: See Below - Vital Signs Weight: 76.657 kg - Exam General: Alert, Oriented HEENT: PERRLA, Conjunctiva Clear, EACs Clear, EOMI, Hearing Intact, Mucosa Moist & [place], Nares Patent, Normal Nasal Septum, Posterior Pharynx Clear, TMs Clear Neck: Supple, Trachea Midline Lungs: Clear to Auscultation, Normal Respiratory Effort Cardiovascular: Regular Rate, Regular Rhythm GI/Abdominal Exam: Normal Bowel Sounds, Soft, Non-Tender, No Organomegaly, No Distention, No Abnormal Bruit, No Mass, Pelvis Stable Rectal Exam: Normal Exam, Normal Rectal Tone Genitourinary: Normal external exam, Normal bimanual exam, Normal speculum exam Back Exam: Normal Inspection, Full Range of Motion Extremities: Normal Inspection, Normal Range of Motion, Non-Tender, No Pedal Edema, Normal Capillary Refill Skin: Warm, Dry, Intact Neurological: Cranial Nerves Intact, Reflexes Equal Bilateral Psychiatric: Alert, Normal Affect, Normal Mood Problem List Initiated/Reviewed/Updated: Yes Assessment/Plan Comment:: Intrauterine 39 weeks she is scheduled for elective repeat section today
[2017-05-25] MEDS ORDERED: Sodium Chloride 0.9% 10 ML Syringe FLUSH PRN (10:13)
[2017-05-25] MEDS ORDERED: Sodium Chloride 0.9% 2.5 ML Syringe FLUSH PRN (10:13)
[2017-05-25] MEDS ORDERED: Citric Acid/Sodium Citrate Solution 30 ML Cup PO SCH (10:15)
[2017-05-25] MEDS ORDERED: Oxytocin/0.9 % Sodium Chloride 30 UNIT/500 ML BAG IV SCH (10:15)
[2017-05-25] MEDS: Lactated Ringers 1,000 ML IV SCH ×3 (10:34→12:00)
[2017-05-25] MEDS ORDERED: ePHEDrine 50 MG/ML SDV ONE (11:22)
[2017-05-25] MEDS ORDERED: Ondansetron 4 MG/2 ML SDV ONE (11:22)
[2017-05-25] MEDS ORDERED: Morphine PF 1 MG/ML Amp ONE (11:22)
--- NOTE | 2017-05-25 11:35 | PCM.PREANE ---
<DelvinRosalie Brianne - Last Filed: 05/25/17 11:43> Preanesthetic Assessment - Anesthesia/Transfusion/Family Hx Anesthesia History: Prior Anesthesia Without Reaction Transfusion History: No Prior Transfusion(s) - Review of Systems General: No Symptoms Pulmonary: No Symptoms Cardiovascular: No Symptoms Gastrointestinal: No Symptoms, Other (Reflux with ) Neurological: No Symptoms Other: Reports: None - Physical Assessment ASA Class: 2 Mental Status: Alert & Oriented x3 Airway Class: Mallampati = 2 Dentition: Reports: Normal Dentition Thyro-Mental Finger Breadths: 3 Mouth Opening Finger Breadths: 3 ROM/Head Extension: Full Lungs: Clear to Auscultation, Normal Respiratory Effort Cardiovascular: Regular Rate, Regular Rhythm - Lab Values: Laboratory Last Values WBC 6.33 K/uL (4.0-11.0) 05/25/17 10:27 RBC 3.38 M/uL (4.30-5.90) L 05/25/17 10:27 Hgb 10.9 g/dL (12.0-16.0) L 05/25/17 10:27 Hct 31.2 % (36.0-46.0) L 05/25/17 10:27 MCV 92.3 fL (80.0-98.0) 05/25/17 10:27 MCH 32.2 pg (27.0-32.0) H 05/25/17 10:27 MCHC 34.9 g/dL (31.0-37.0) 05/25/17 10:27 RDW Std Deviation 43.1 fl (28.0-62.0) 05/25/17 10:27 RDW Coeff of Hari 13 % (11.0-15.0) 05/25/17 10:27 Plt Count 209 K/uL (150-400) 05/25/17 10:27 MPV 10.60 fL (7.40-12.00) 05/25/17 10:27 Nucleated RBC % 0.0 /100WBC 05/25/17 10:27 Nucleated RBCs # 0 K/uL 05/25/17 10:27 Blood Type O POSITIVE 05/25/17 10:27 Antibody Screen NEGATIVE 05/25/17 10:27 - Allergies Allergies/Adverse Reactions: Allergies Allergy/AdvReac Type Severity Reaction Status Date / Time amoxicillin Allergy Hives Verified 05/25/17 11:44 - Blood Blood Available: No Product(s) Available: None - Anesthesia Plan Free Text/Narrative:: SAB with backup general Pre-Op Medication Ordered: Antacids - Acknowledgements Anesthesia Type Planned: Spinal Pt an Appropriate Candidate for the Planned Anesthesia: Yes Alternatives and Risks of Anesthesia Discussed w Pt/Guardian: Yes Pt/Guardian Understands and Agrees with Anesthesia Plan: Yes PreAnesthesia Questionnaire Other Cardiovascular History: HTN with two previous pregnancies Respiratory History: Reports: None DOOR PERSON History: Reports: , Other (See Below) Other OB/BYN History: in Mar Endocrine/Metabolic History: Reports: Obesity/BMI 30+ - Past Surgical History Head Surgeries/Procedures: Reports: None HEENT Surgical History: Reports: None Cardiovascular Surgical History: Reports: None Female Surgical History: Reports: Section, Other (See Below) ( Hysteroscopy for IUD removal) - HOME MEDS Home Medications: Home Meds Vit W-Ca,Fe,FA(<1 mg) [ Vitamins] 1 each PO DAILY 12/18/16 [ History] - CURRENT (IN HOUSE) MEDS Current Meds: Current Medications Citric Acid/Sodium Citrate (Bicitra Solution) 30 ml PO .ONCE TIERA Lactated Ringer's (Ringers, Lactated) 1,000 mls @ 500 mls/hr IV .BOLUS TIERA Last Admin: 05/25/17 11:16 Dose: 500 mls/hr Oxytocin/Sodium Chloride (Oxytocin 30 Unit/500 Ml-Ns) 30 unit in 500 mls @ 250 mls/hr IV TITRATE TIERA Sodium Chloride (Saline Flush) 10 ml FLUSH ASDIRECTED PRN PRN Reason: Keep Vein Open Sodium Chloride (Saline Flush) 2.5 ml FLUSH ASDIRECTED PRN PRN Reason: Keep Vein Open Discontinued Medications Ephedrine Sulfate (Ephedrine Sulfate) Confirm Administered Dose 50 mg .ROUTE .STK-MED ONE Stop: 05/25/17 11:23 Morphine Sulfate (Duramorph Pf) Confirm Administered Dose 1 mg .ROUTE .STK-MED ONE Stop: 05/25/17 11:23 Ondansetron HCl (Zofran) Confirm Administered Dose 4 mg .ROUTE .STK-MED ONE Stop: 05/25/17 11:23 Tj Escobedo - Last Filed: 05/25/17 12:06> Preanesthetic Assessment - Procedure Proposed Procedure: Repeat - Anesthesia/Transfusion/Family Hx Anesthesia History: Prior Anesthesia Without Reaction Transfusion History: No Prior Transfusion(s) - Physical Assessment NPO Status Date: 05/25/17 Height: 5 ft 1 in Weight: 180 lb 4 oz ASA Class: 2 Mental Status: Alert & Oriented x3 Dentition: Reports: Normal Dentition - Blood Blood Available: Yes Product(s) Available: None (T and S) - Anesthesia Plan Pre-Op Medication Ordered: Antacids - Acknowledgements Pt an Appropriate Candidate for the Planned Anesthesia: Yes Alternatives and Risks of Anesthesia Discussed w Pt/Guardian: Yes Pt/Guardian Understands and Agrees with Anesthesia Plan: Yes PreAnesthesia Questionnaire - Past Health History Medical/Surgical History: Denies Medical/Surgical History HEENT History: Reports: None Cardiovascular History: Reports: None Respiratory History: Reports: None Gastrointestinal History: Reports: None Other Gastrointestinal History: heartburn during Genitourinary History: Reports: None Other Genitourinary History: Kidney infection with previous DOOR PERSON History: Reports: , Other (See Below) Other OB/BYN History: had IUD removed today in surgery Musculoskeletal History: Reports: None Neurological History: Reports: None Psychiatric History: Reports: None Endocrine/Metabolic History: Reports: Obesity/BMI 30+ Hematologic History: Reports: None Immunologic History: Reports: None Oncologic (Cancer) History: Reports: None Dermatologic History: Reports: None - Infectious Disease History Infectious Disease History: Reports: Chicken Pox - Past Surgical History Head Surgeries/Procedures: Reports: None Female Surgical History: Reports: Section - History Comment History Comment: etoh "occasional" - SUBSTANCE USE Smoking Status *Q: Never Smoker Second Hand Smoke Exposure: No Recreational Drug Use History: No
[2017-05-25] MEDS ORDERED: ceFAZolin 2 GM in Premix Bag 1 BAG IV ONE (11:45)
[2017-05-25] MEDS ORDERED: ceFAZolin/Dextrose,Iso-Osmotic 2 GM/50 ML Duplex Bag IV ONE (11:51)
[2017-05-25] MEDS ORDERED: Oxytocin/0.9 % Sodium Chloride 30 UNIT/500 ML BAG ONE (11:51)
[2017-05-25] MEDS ORDERED: Octyl 2-Cyanoacrylate 1 Tube ONE (11:52)
[2017-05-25] MEDS ORDERED: Phenylephrine/Normal Saline 100 MCG/ML 10 ML Syringe ONE (12:20)
[2017-05-25] MEDS ORDERED: fentaNYL 100 MCG/2 ML SDV ONE (12:45)
[2017-05-25] MEDS ORDERED: Bisacodyl 10 MG Supp RECTAL PRN (12:51)
[2017-05-25] MEDS ORDERED: Acetaminophen/oxyCODONE 325-5 MG Tab PO PRN (12:51)
[2017-05-25] MEDS ORDERED: Lanolin 100% Cream 7 GM Tube TOP PRN (12:51)
[2017-05-25] MEDS ORDERED: Ondansetron 4 MG/2 ML SDV IV PRN (12:51)
--- NOTE | 2017-05-25 12:54 | PCM.OPNOTE ---
- General Post-Op/Procedure Note Date of Surgery/Procedure: 05/25/17 Operative Procedure(s): IUP 39+ previous C/Section Pre Op Diagnosis: Repeat C/Section. Post-Op Diagnosis: Same Anesthesia Technique: Spinal Primary Surgeon: Brijesh Jimenez Engagement Engineer: Hannah Samuel EBL in mLs: 700 Complications: None Condition: Good
[2017-05-25] MEDS ORDERED: Lactated Ringers 1,000 ML IV SCH (13:00)
[2017-05-25] MEDS ORDERED: Naloxone 0.4 MG/ML Syringe IVPUSH PRN (13:07)
[2017-05-25] MEDS ORDERED: diphenhydrAMINE 50 MG/ML SDV IVPUSH PRN (13:07)
[2017-05-25] MEDS ORDERED: Nalbuphine 10 MG/1 ML Vial IVPUSH PRN (13:07)
[2017-05-25] MEDS: Ketorolac 30 MG/ML SDV IVPUSH SCH ×2 (13:23→19:38)
--- NOTE | 2017-05-25 13:44 | PCM.POSTAN ---
POST ANESTHESIA ASSESSMENT - MENTAL STATUS Mental Status: Alert, Oriented - VITAL SIGNS Pulse Rate: 79 SaO2: 96 Resp Rate: 16 Blood Pressure: 122/76 Temperature: 96.8 F - RESPIRATORY Respiratory Status: Respiratory Rate WNL, Airway Patent, O2 Saturation Stable - CARDIOVASCULAR CV Status: Pulse Rate WNL, Blood Pressure Stable - GASTROINTESTINAL GI Status: No Symptoms - POST OP HYDRATION Hydration Status: Adequate & Stable - OBSERVATIONS Free Text/Narrative:: Ready for transfer to OB floor in good condition.
--- NOTE | 2017-05-25 13:58 | OR ---
SURGEON: Brijesh Jimenez MD DATE OF PROCEDURE: PREOPERATIVE DIAGNOSES: 1. Intrauterine , 39 weeks. 2. Previous section. POSTOPERATIVE DIAGNOSES: 1. Intrauterine , 39 weeks. 2. Previous section. OPERATION PERFORMED: Repeat low-transverse section. PAPER [place]E MACHINE OPERATOR: Hannah Samuel CNM ANESTHESIA: Spinal by Rosalie Hargrove and Tj Palmer M.D. ESTIMATED BLOOD LOSS: 700 mL. COMPLICATIONS: None. FINDINGS: Male fetus. score reported to be 8 and 9. Weight is not available at this time. Normal uterus, tubes, and ovaries. INDICATION FOR SURGERY: This is 22-year-old patient. She has had 2 previous section. She is term. She is 39 weeks. She is plus. She is followed in our clinic. She is admitted for elective repeat section. PROCEDURE IN DETAIL: The patient was brought to the OR, properly identified. After adequate level of spinal anesthesia, the patient was prepped and draped in sterile fashion as usual. After taking time-out, the procedure started by a low transverse skin incision through the old scar. The Wicho's fascia, rectus fascia was opened in direction of the incision. The 2 recti muscles were and peritoneal cavity was entered. Bladder flap was raised in the usual manner pushing the bladder away from the lower uterine segment. Low-transverse uterine incision extended manually with the hand. The fetus was in a vertex position, delivered without any problem, cried immediately. score reported to be 8 and 9. The placenta delivered spontaneous complete and intact and repair of the lower uterine segment started with 2-0 Vicryl continuous interlocking in 2 layers. The peritoneal cavity evacuated completely from all blood and blood clot and closed with 3-0 Vicryl continuous and then the rectus fascia was closed with #1 PDS double strand continuous. Wicho's fascia with 3-0 Vicryl continuous and the skin closed with 3-0 Vicryl on Abraham needle and Dermabond. Instrument and sponge count was correct. The patient tolerated the procedure well, went to recovery room in stable general condition. LUTHER / TRENTON /[id number]
[2017-05-25] MEDS: diphenhydrAMINE 50 MG/ML SDV IVPUSH PRN ×2 (14:36→20:17)
[2017-05-25] MEDS: Acetaminophen/oxyCODONE 325-5 MG Tab PO PRN ×2 (15:36→23:29)
[2017-05-25] MEDS: Docusate Sodium 100 MG Cap PO SCH (20:16)
[2017-05-26] MEDS: Ketorolac 30 MG/ML SDV IVPUSH SCH ×3 (01:43→13:15)
[2017-05-26] MEDS: diphenhydrAMINE 50 MG/ML SDV IVPUSH PRN ×2 (02:23→09:23)
--- NOTE | 2017-05-26 08:30 | PCM48HPAN ---
Post Anesthesia Note - EVALUATION WITHIN 48HRS OF ANESTHETIC Vital Signs in Normal Range: Yes Patient Participated in Evaluation: Yes Respiratory Function Stable: Yes Airway Patent: Yes Cardiovascular Function Stable: Yes Hydration Status Stable: Yes Pain Control Satisfactory: Yes Nausea and Vomiting Control Satisfactory: Yes Mental Status Recovered: Yes Pulse Rate: 79 Resp Rate: 17 Temperature: 36.0 C Blood Pressure: 122/76 - COMMENTS/OBSERVATIONS Free Text/Narrative:: States Duramorph is starting to wear off. Encouraged to ask for pain medication.
--- NOTE | 2017-05-26 09:00 | PCM.SURGPN ---
- General Info Date of Service: 05/26/17 POD#: 1 Functional Status: Reports: Pain Controlled - Review of Systems General: Reports: No Symptoms HEENT: Reports: No Symptoms Pulmonary: Reports: No Symptoms Cardiovascular: Reports: No Symptoms Gastrointestinal: Reports: No Symptoms Genitourinary: Reports: No Symptoms Musculoskeletal: Reports: No Symptoms Skin: Reports: No Symptoms Neurological: Reports: No Symptoms Psychiatric: Reports: No Symptoms - Patient Data Vitals - Most Recent: Last Vital Signs Temp 36.0 C 05/26/17 08:29 Pulse 79 05/26/17 08:29 Resp 17 05/26/17 08:29 BP 122/76 05/26/17 08:29 Pulse Ox 97 05/26/17 06:00 Weight - Most Recent: 81.76 kg I&O - Last 24 Hours: Intake & Output 05/25/17 05/26/17 05/26/17 22:59 06:59 14:59 Intake Total 350 1100 Output Total 500 1400 Balance -150 -300 Lab Results Last 24 Hrs: Laboratory Results - last 24 hr 05/25/17 05/25/17 05/26/17 Range/Units 10:27 10:27 05:14 WBC 6.33 (4.0-11.0) K/uL RBC 3.38 L (4.30-5.90) M/uL Hgb 10.9 L 9.5 L (12.0-16.0) g/dL Hct 31.2 L 28.4 L (36.0-46.0) % MCV 92.3 (80.0-98.0) fL MCH 32.2 H (27.0-32.0) pg MCHC 34.9 (31.0-37.0) g/dL RDW Std Deviation 43.1 (28.0-62.0) fl RDW Coeff of Hari 13 (11.0-15.0) % Plt Count 209 (150-400) K/uL MPV 10.60 (7.40-12.00) fL Nucleated RBC % 0.0 /100WBC Nucleated RBCs # 0 K/uL Blood Type O POSITIVE Antibody Screen NEGATIVE Med Orders - Current: Current Medications Bisacodyl (Dulcolax) 10 mg RECTAL .ONCE PRN PRN Reason: Constipation Citric Acid/Sodium Citrate (Bicitra Solution) 30 ml PO .ONCE TIERA Last Admin: 03/20/18 12:00 Dose: 30 ml Diphenhydramine HCl (Benadryl) 25 mg IVPUSH Q6H PRN PRN Reason: Itching or Nausea Last Admin: 05/26/17 02:23 Dose: 25 mg Diphenhydramine HCl (Benadryl) 25 mg IVPUSH Q4H PRN PRN Reason: pruritis Stop: 05/26/17 13:08 Docusate Sodium (Colace) 100 mg PO BID [facility] Last Admin: 05/25/17 20:16 Dose: 100 mg Emollient Ointment (Lansinoh Hpa) 0 gm TOP ASDIRECTED PRN PRN Reason: Sore Nipples Lactated Ringer's (Ringers, Lactated) 1,000 mls @ 500 mls/hr IV .BOLUS [facility] Last Admin: 05/25/17 12:00 Dose: 500 mls/hr Oxytocin/Sodium Chloride (Oxytocin 30 Unit/500 Ml-Ns) 30 unit in 500 mls @ 250 mls/hr IV TITRATE [facility] Lactated Ringer's (Ringers, Lactated) 1,000 mls @ 125 mls/hr IV ASDIRECTED [facility] Last Admin: 05/25/17 14:46 Dose: 125 mls/hr Ibuprofen (Motrin) 800 mg PO Q8H PRN PRN Reason: mild pain or fever Ketorolac Tromethamine (Toradol) 30 mg IVPUSH Q6H [facility] Stop: 05/26/17 13:01 Last Admin: 05/26/17 06:50 Dose: 30 mg Nalbuphine HCl (Nubain) 2.5 mg IVPUSH Q3H PRN PRN Reason: Pruritis Stop: 05/26/17 13:08 Naloxone HCl (Narcan) 0.1 mg IVPUSH ONETIME PRN PRN Reason: RR<6 WITH STIMULATION Stop: 05/26/17 13:08 Ondansetron HCl (Zofran) 4 mg IV Q4H PRN PRN Reason: Nausea/Vomiting Oxycodone/Acetaminophen (Percocet 325-5 Mg) 1 tab PO Q4H PRN PRN Reason: Pain (moderate 4-6) Oxycodone/Acetaminophen (Percocet 325-5 Mg) 2 tab PO Q4H PRN PRN Reason: Pain (moderate 4-6) Oxycodone/Acetaminophen (Percocet 325-5 Mg) 1 tab PO .Q4HR PRN PRN Reason: Breakthrough Pain Stop: 05/26/17 13:00 Last Admin: 05/25/17 23:29 Dose: 1 tab Sodium Chloride (Saline Flush) 10 ml FLUSH ASDIRECTED PRN PRN Reason: Keep Vein Open Sodium Chloride (Saline Flush) 2.5 ml FLUSH ASDIRECTED PRN PRN Reason: Keep Vein Open Discontinued Medications Cefazolin Sodium/Dextrose (Ancef) Confirm Administered Dose 2 gm IV .STK-MED ONE Stop: 05/25/17 11:52 Ephedrine Sulfate (Ephedrine Sulfate) Confirm Administered Dose 50 mg .ROUTE .STK-MED ONE Stop: 05/25/17 11:23 Fentanyl (Sublimaze) Confirm Administered Dose 100 mcg .ROUTE .STK-MED ONE Stop: 05/25/17 12:46 Cefazolin Sodium/Dextrose 2 gm (/ Premix) 50 mls @ 100 mls/hr IV ONETIME ONE Stop: 05/25/17 12:14 Oxytocin/Sodium Chloride (Oxytocin 30 Unit/500 Ml-Ns) Confirm Administered Dose 30 unit in 500 mls @ as directed .ROUTE .STK-MED ONE Stop: 05/25/17 11:52 Morphine Sulfate (Duramorph Pf) Confirm Administered Dose 1 mg .ROUTE .STK-MED ONE Stop: 05/25/17 11:23 Octyl Cyanoacrylate (Dermabond Advance) Confirm Administered Dose 1 applic .ROUTE .STK-MED ONE Stop: 05/25/17 11:53 Ondansetron HCl (Zofran) Confirm Administered Dose 4 mg .ROUTE .STK-MED ONE Stop: 05/25/17 11:23 Phenylephrine HCl (Phenylephrine In Ns 100 Mcg/Ml) Confirm Administered Dose 1 mg .ROUTE .STK-MED ONE Stop: 05/25/17 12:21 - Exam Wound/Incisions: Healing Well General: Alert, Oriented HEENT: Pupils Equal Neck: Supple Lungs: Clear to Auscultation, Normal Respiratory Effort Cardiovascular: Regular Rate, Regular Rhythm GI/Abdominal Exam: Normal Bowel Sounds, Soft, Non-Tender, No Organomegaly, No Distention, No Abnormal Bruit, No Mass, Pelvis Stable Extremities: Normal Inspection, Normal Range of Motion, Non-Tender, No Pedal Edema, Normal Capillary Refill Skin: Warm, Dry, Intact Neurological: No New Focal Deficit Psy/Mental Status: Alert, Normal Affect, Normal Mood - Problem List Review Problem List Initiated/Reviewed/Updated: Yes - My Orders Last 24 Hours: Active Orders 24 hr Category Date Time Status Patient Status [ADT] Routine ADT 05/25/17 12:51 Active Ambulate [RC] PER UNIT ROUTINE Care 05/25/17 12:51 Active Antiembolic Devices [RC] PER UNIT ROUTINE Care 05/25/17 12:52 Active Bradycardia-Neuroaxis Duramorp [RC] ROUTINE Care 05/25/17 13:06 Active Communication Order [RC] PER UNIT ROUTINE Care 05/25/17 12:51 Active Communication Order [RC] PER UNIT ROUTINE Care 05/25/17 12:51 Active Communication Order [RC] Per Unit Routine Care 05/25/17 12:51 Active Hypertension-Neuroaxis Duramor [RC] ROUTINE Care 05/25/17 13:06 Active Hypotension-Neuroaxis Duramorp [RC] ROUTINE Care 05/25/17 13:06 Active May Shower [RC] ASDIRECTED Care 05/25/17 12:51 Active Notify Provider Vital Signs [RC] PRN Care 05/25/17 10:16 Active Oxygen Therapy [RC] PER UNIT ROUTINE Care 05/25/17 13:06 Active RT Incentive Spirometry [RC] Q2HWA Care 05/25/17 12:51 Active Vital Signs [RC] PER UNIT ROUTINE Care 05/25/17 10:14 Active Vital Signs [RC] PER UNIT ROUTINE Care 05/25/17 12:51 Active Vital Signs [RC] Q1H Care 05/25/17 13:06 Active Regular Diet [DIET] Diet 05/26/17 Breakfast Active Acetaminophen/oxyCODONE [Percocet 325-5 MG] Med 05/25/17 13:06 Active 1 tab PO .Q4HR PRN Acetaminophen/oxyCODONE [Percocet 325-5 MG] Med 05/25/17 12:51 Active 1 tab PO Q4H PRN Acetaminophen/oxyCODONE [Percocet 325-5 MG] Med 05/25/17 12:51 Active 2 tab PO Q4H PRN Bisacodyl [Dulcolax] Med 05/25/17 12:51 Active 10 mg RECTAL .ONCE PRN Citric Acid/Sodium Citrate [Bicitra Solution] Med 05/25/17 10:15 Active 30 ml PO .ONCE Docusate Sodium [Colace] Med 05/25/17 21:00 Active 100 mg PO BID Ibuprofen [Motrin] Med 05/25/17 12:51 Active 800 mg PO Q8H PRN Ketorolac [Toradol] Med 05/25/17 13:00 Active 30 mg IVPUSH Q6H Lactated Ringers [Ringers, Lactated] 1,000 ml Med 05/25/17 10:15 Active IV .BOLUS Lactated Ringers [Ringers, Lactated] 1,000 ml Med 05/25/17 13:00 Active IV ASDIRECTED Lanolin [Lansinoh HPA] Med 05/25/17 12:51 Active See Dose Instructions TOP ASDIRECTED PRN Nalbuphine [Nubain] Med 05/25/17 13:07 Active 2.5 mg IVPUSH Q3H PRN Naloxone [Narcan] Med 05/25/17 13:07 Active 0.1 mg IVPUSH ONETIME PRN Ondansetron [Zofran] Med 05/25/17 12:51 Active 4 mg IV Q4H PRN Oxytocin/0.9 % Sodium Chloride [Oxytocin 30 Unit/500 ML Med 05/25/17 10:15 Active -NS] 30 unit in 500 ml IV TITRATE Sodium Chloride 0.9% [Saline Flush] Med 05/25/17 10:13 Active 10 ml FLUSH ASDIRECTED PRN Sodium Chloride 0.9% [Saline Flush] Med 05/25/17 10:13 Active 2.5 ml FLUSH ASDIRECTED PRN diphenhydrAMINE [Benadryl] Med 05/25/17 13:07 Active 25 mg IVPUSH Q4H PRN diphenhydrAMINE [Benadryl] Med 05/25/17 12:51 Active 25 mg IVPUSH Q6H PRN AN Neuroaxis Duramorph Precaution Reflex [OM.PC] PER Oth 05/25/17 13:15 Ordered UNIT ROUTINE AN Neuroaxis Duramorph Precaution Reflex [OM.PC] PER Oth 05/26/17 13:15 Ordered UNIT ROUTINE Assess Lochia [WOMSER] Per Unit Routine Oth 05/25/17 12:51 Ordered Assess Uterine Involution [WOMSER] Per Unit Routine Oth 05/25/17 12:51 Ordered Breast Pump [WOMSER] Per Unit Routine Oth 05/25/17 12:51 Ordered Peripheral IV Discontinue [OM.PC] Routine Oth 05/25/17 12:51 Ordered Peripheral IV Insertion Adult [OM.PC] Routine Oth 05/25/17 10:14 Ordered Schedule Procedure [COMM] Per Unit Routine Oth 05/25/17 10:14 Ordered Sequential Compression Device [OM.PC] Per Unit Routine Oth 05/25/17 12:51 Ordered Resuscitation Status Routine Resus Stat 05/25/17 10:13 Ordered Medication Orders Bisacodyl (Dulcolax) 10 mg RECTAL .ONCE PRN PRN Reason: Constipation Citric Acid/Sodium Citrate (Bicitra Solution) 30 ml PO .ONCE TIERA Last Admin: 05/25/17 12:00 Dose: 30 ml Diphenhydramine HCl (Benadryl) 25 mg IVPUSH Q6H PRN PRN Reason: Itching or Nausea Last Admin: 05/26/17 02:23 Dose: 25 mg Admin: 05/25/17 20:17 Dose: 25 mg Admin: 05/25/17 14:36 Dose: 25 mg Diphenhydramine HCl (Benadryl) 25 mg IVPUSH Q4H PRN PRN Reason: pruritis Stop: 05/26/17 13:08 Docusate Sodium (Colace) 100 mg PO BID TIERA Last Admin: 05/25/17 20:16 Dose: 100 mg Emollient Ointment (Lansinoh Hpa) 0 gm TOP ASDIRECTED PRN PRN Reason: Sore Nipples Lactated Ringer's (Ringers, Lactated) 1,000 mls @ 500 mls/hr IV .BOLUS TIERA Last Admin: 05/25/17 12:00 Dose: 500 mls/hr Infusion: 05/25/17 12:00 Dose: 500 mls/hr Admin: 05/25/17 11:16 Dose: 500 mls/hr Infusion: 05/25/17 11:16 Dose: 500 mls/hr Admin: 05/25/17 10:34 Dose: 500 mls/hr Oxytocin/Sodium Chloride (Oxytocin 30 Unit/500 Ml-Ns) 30 unit in 500 mls @ 250 mls/hr IV TITRATE [facility] Lactated Ringer's (Ringers, Lactated) 1,000 mls @ 125 mls/hr IV ASDIRECTED [facility] Last Admin: 05/25/17 14:46 Dose: 125 mls/hr Ibuprofen (Motrin) 800 mg PO Q8H PRN PRN Reason: mild pain or fever Ketorolac Tromethamine (Toradol) 30 mg IVPUSH Q6H [facility] Stop: 05/26/17 13:01 Last Admin: 05/26/17 06:50 Dose: 30 mg Admin: 05/26/17 01:43 Dose: 30 mg Admin: 05/25/17 19:38 Dose: 30 mg Admin: 05/25/17 13:23 Dose: 30 mg Nalbuphine HCl (Nubain) 2.5 mg IVPUSH Q3H PRN PRN Reason: Pruritis Stop: 05/26/17 13:08 Naloxone HCl (Narcan) 0.1 mg IVPUSH ONETIME PRN PRN Reason: RR<6 WITH STIMULATION Stop: 05/26/17 13:08 Ondansetron HCl (Zofran) 4 mg IV Q4H PRN PRN Reason: Nausea/Vomiting Oxycodone/Acetaminophen (Percocet 325-5 Mg) 1 tab PO Q4H PRN PRN Reason: Pain (moderate 4-6) Oxycodone/Acetaminophen (Percocet 325-5 Mg) 2 tab PO Q4H PRN PRN Reason: Pain (moderate 4-6) Oxycodone/Acetaminophen (Percocet 325-5 Mg) 1 tab PO .Q4HR PRN PRN Reason: Breakthrough Pain Stop: 05/26/17 13:00 Last Admin: 05/25/17 23:29 Dose: 1 tab Admin: 05/25/17 15:36 Dose: 1 tab Sodium Chloride (Saline Flush) 10 ml FLUSH ASDIRECTED PRN PRN Reason: Keep Vein Open Sodium Chloride (Saline Flush) 2.5 ml FLUSH ASDIRECTED PRN PRN Reason: Keep Vein Open - Assessment Assessment (Free Text/Narrative):: Status post repeat section postoperative day #1 patient is doing well vital signs stable incision is clean and dry she have minimal amount of vaginal bleeding for the catheter is removed and the patient is voiding without any problem she is on regular diet she is ambulatory we are planning to send her home tomorrow
[2017-05-26] MEDS: Acetaminophen/oxyCODONE 325-5 MG Tab PO PRN ×2 (09:25→13:27)
[2017-05-26] MEDS: Docusate Sodium 100 MG Cap PO SCH ×2 (09:25→20:12)
[2017-05-26] MEDS: Ibuprofen 800 MG Tab PO PRN (19:22)
[2017-05-27] MEDS: Ibuprofen 800 MG Tab PO PRN ×2 (04:23→12:23)
[2017-05-27] MEDS: Acetaminophen/oxyCODONE 325-5 MG Tab PO PRN ×3 (04:24→12:21)
--- NOTE | 2017-05-27 08:19 | PCM.DCSUM1 ---
Discharge Summary - Hospital Course Free Text/Narrative:: Discharge home with infant. Follow up in 10 days for incision check and again in 6 weeks or sooner if needed. - Discharge Data Discharge Date: 05/27/17 Discharge Disposition: Home, Self-Care 01 Condition: Good - Patient Summary/Data Operative Procedure(s) Performed: IUP 39+ previous C/Section - Patient Instructions Diet: Usual Diet as Tolerated Activity: As Tolerated, No Strenuous Activities, Rest and Relax Today Driving: May Drive Today Showering/Bathing: July Shower Wound/Incision Care: Keep Operative Site/Wound Site Clean and Dry Notify Provider of: Fever, Increased Pain, Swelling and Redness, Drainage, Nausea and/or Vomiting Other/Special Instructions: Discharge home with infant. Follow up in 10 days for incision check and again in 6 weeks or sooner if needed. - Discharge Plan Home Medications: Home Meds Vit W-Ca,Fe,FA(<1 mg) [ Vitamins] 1 each PO DAILY 12/18/16 [ History] Referrals: [facility] [Outside] Hannah Samuel CNM [Mid-] - (1 week- June 11 @ 13:30pm wAliyah Samuel 6 week- July 23 @ 10:45am wAliyah Samuel ) - General Info Date of Service: 05/27/17 Admission Dx/Problem (Free Text: Admission Diagnosis/Problem Admission Diagnosis/Problem Functional Status: Reports: Pain Controlled, Tolerating Diet, Ambulating, Urinating - Review of Systems General: Reports: No Symptoms HEENT: Reports: No Symptoms Pulmonary: Reports: No Symptoms Cardiovascular: Reports: No Symptoms Gastrointestinal: Reports: No Symptoms Genitourinary: Reports: No Symptoms Musculoskeletal: Reports: No Symptoms Skin: Reports: No Symptoms Neurological: Reports: No Symptoms Psychiatric: Reports: No Symptoms - Patient Data Vitals - Most Recent: Last Vital Signs Temp 36.3 C 05/27/17 04:00 Pulse 69 05/27/17 04:00 Resp 18 05/27/17 04:00 BP 110/70 05/27/17 04:00 Pulse Ox 95 05/27/17 04:00 Weight - Most Recent: 81.76 kg I&O - Last 24 hours: Intake & Output 03/21/18 03/22/18 03/22/18 22:59 06:59 14:59 Intake Total 700 Output Total 1750 Balance -1050 Med Orders - Current: Current Medications Bisacodyl (Dulcolax) 10 mg RECTAL .ONCE PRN PRN Reason: Constipation Citric Acid/Sodium Citrate (Bicitra Solution) 30 ml PO .ONCE [facility] Last Admin: 05/25/17 12:00 Dose: 30 ml Diphenhydramine HCl (Benadryl) 25 mg IVPUSH Q6H PRN PRN Reason: Itching or Nausea Last Admin: 05/26/17 09:23 Dose: 25 mg Docusate Sodium (Colace) 100 mg PO BID [facility] Last Admin: 05/26/17 20:12 Dose: 100 mg Emollient Ointment (Lansinoh Hpa) 0 gm TOP ASDIRECTED PRN PRN Reason: Sore Nipples Lactated Ringer's (Ringers, Lactated) 1,000 mls @ 500 mls/hr IV .BOLUS [facility] Last Admin: 05/25/17 12:00 Dose: 500 mls/hr Oxytocin/Sodium Chloride (Oxytocin 30 Unit/500 Ml-Ns) 30 unit in 500 mls @ 250 mls/hr IV TITRATE [facility] Lactated Ringer's (Ringers, Lactated) 1,000 mls @ 125 mls/hr IV ASDIRECTED [facility] Last Admin: 05/25/17 14:46 Dose: 125 mls/hr Ibuprofen (Motrin) 800 mg PO Q8H PRN PRN Reason: mild pain or fever Last Admin: 05/27/17 04:23 Dose: 800 mg Ondansetron HCl (Zofran) 4 mg IV Q4H PRN PRN Reason: Nausea/Vomiting Oxycodone/Acetaminophen (Percocet 325-5 Mg) 1 tab PO Q4H PRN PRN Reason: Pain (moderate 4-6) Last Admin: 05/27/17 04:24 Dose: 1 tab Oxycodone/Acetaminophen (Percocet 325-5 Mg) 2 tab PO Q4H PRN PRN Reason: Pain (moderate 4-6) Last Admin: 05/26/17 20:12 Dose: 2 tab Sodium Chloride (Saline Flush) 10 ml FLUSH ASDIRECTED PRN PRN Reason: Keep Vein Open Sodium Chloride (Saline Flush) 2.5 ml FLUSH ASDIRECTED PRN PRN Reason: Keep Vein Open Discontinued Medications Cefazolin Sodium/Dextrose (Ancef) Confirm Administered Dose 2 gm IV .STK-MED ONE Stop: 05/25/17 11:52 Diphenhydramine HCl (Benadryl) 25 mg IVPUSH Q4H PRN PRN Reason: pruritis Stop: 05/26/17 13:08 Ephedrine Sulfate (Ephedrine Sulfate) Confirm Administered Dose 50 mg .ROUTE .STK-MED ONE Stop: 05/25/17 11:23 Fentanyl (Sublimaze) Confirm Administered Dose 100 mcg .ROUTE .STK-MED ONE Stop: 05/25/17 12:46 Cefazolin Sodium/Dextrose 2 gm (/ Premix) 50 mls @ 100 mls/hr IV ONETIME ONE Stop: 05/25/17 12:14 Oxytocin/Sodium Chloride (Oxytocin 30 Unit/500 Ml-Ns) Confirm Administered Dose 30 unit in 500 mls @ as directed .ROUTE .STK-MED ONE Stop: 05/25/17 11:52 Ketorolac Tromethamine (Toradol) 30 mg IVPUSH Q6H TIERA Stop: 05/26/17 13:01 Last Admin: 05/26/17 13:15 Dose: 30 mg Morphine Sulfate (Duramorph Pf) Confirm Administered Dose 1 mg .ROUTE .STK-MED ONE Stop: 05/25/17 11:23 Nalbuphine HCl (Nubain) 2.5 mg IVPUSH Q3H PRN PRN Reason: Pruritis Stop: 05/26/17 13:08 Naloxone HCl (Narcan) 0.1 mg IVPUSH ONETIME PRN PRN Reason: RR<6 WITH STIMULATION Stop: 05/26/17 13:08 Octyl Cyanoacrylate (Dermabond Advance) Confirm Administered Dose 1 applic .ROUTE .STK-MED ONE Stop: 05/25/17 11:53 Ondansetron HCl (Zofran) Confirm Administered Dose 4 mg .ROUTE .STK-MED ONE Stop: 05/25/17 11:23 Oxycodone/Acetaminophen (Percocet 325-5 Mg) 1 tab PO .Q4HR PRN PRN Reason: Breakthrough Pain Stop: 05/26/17 13:00 Last Admin: 05/26/17 09:25 Dose: 1 tab Phenylephrine HCl (Phenylephrine In Ns 100 Mcg/Ml) Confirm Administered Dose 1 mg .ROUTE .STK-MED ONE Stop: 05/25/17 12:21 - Exam General: Reports: Alert, Oriented, Cooperative, No Acute Distress Lungs: Reports: Clear to Auscultation, Normal Respiratory Effort Cardiovascular: Reports: Regular Rate, Regular Rhythm, No Murmurs GI/Abdominal Exam: Soft, Tender (Female) Exam: Vaginal Bleeding Rectal (Female) Exam: Deferred Back Exam: Reports: Full Range of Motion Extremities: Normal Range of Motion, Non-Tender, No Pedal Edema, Normal Capillary Refill Skin: Reports: Warm, Dry, Intact Wound/Incisions: Reports: Healing Well, No Drainage Neurological: Reports: No New Focal Deficit, Normal Speech, Normal Tone Psy/Mental Status: Reports: Alert, Normal Affect, Normal Mood *Q Meaningful Use (DIS) - VTE *Q VTE Criteria *Q: - Stroke *Q Stroke Criteria *Q: - AMI *Q AMI Criteria *Q:
[2017-05-27] MEDS: Docusate Sodium 100 MG Cap PO SCH (08:21)
[2017-05-27 08:25] VITALS: BP 118/77
[2017-05-27] MEDS ORDERED: Measles, Mumps & Rubella Vaccine 0.5 ML SDV SUBCUT ONE (12:51)
== END 2017-05-27 15:30 | disposition home or self-care (01) | DRG 766 ==
LOC: MW.OB 09:22
PROVIDERS: ADMIT Obstetrics & Gynecology; ATTEND Obstetrics & Gynecology
PROC: 10D00Z1 Extraction of Products of Conception, Low, Open Approach (ICD-10-PCS; principal; 2017-05-25)
DX: O34.211 Maternal care for low transverse scar from previous cesarean delivery (principal); Z3A.39 39 weeks gestation of pregnancy; Z37.0 Single live birth
CPT/HCPCS: 36415; 59025; 85014; 85018; 85027; 86850; 86900; 86901; 90707; A9270-GY; G0010; J1200; J1885; J2274; J2405; J3010; J7120

== ENCOUNTER 2017-07-11 14:59 | Emergency (ER) | payer MEDICAID ==
--- NOTE | 2017-07-11 15:03 | EDM.PDOC ---
ED HPI GENERAL MEDICAL PROBLEM - General Chief Complaint: ENT Problem Stated Complaint: EAR PAIN Time Seen by Provider: 07/11/17 15:03 Source of Information: Reports: Patient - History of Present Illness INITIAL COMMENTS - FREE TEXT/NARRATIVE: HISTORY AND PHYSICAL: History of present illness: [Patient presents with her child initially she was not going to be seen however she decided to be seen for ear pain and sore throat she wants to be checked for strep throat Although the patient's pain seems to be a swollen lymph node along anterior chain she has no fever nausea vomiting chills sweats no chest pain shortness breath headache dizziness or palpitation no bowel or urine symptoms no muffled voice trismus or drooling ] Review of systems: As per history of present illness and below otherwise all systems reviewed and negative. Past medical history: As per history of present illness and as reviewed below otherwise noncontributory. Surgical history: As per history of present illness and as reviewed below otherwise noncontributory. Social history: No reported history of drug or alcohol abuse. Family history: As per history of present illness and as reviewed below otherwise noncontributory. Physical exam: HEENT: Atraumatic, normocephalic, pupils reactive, negative for conjunctival pallor or scleral icterus, mucous membranes moist, throat clear, neck supple, nontender, trachea midline. No pharyngitis mild serous effusion left greater than right no mastoid tenderness no pain with movement of the auricle Lungs: Clear to auscultation, breath sounds equal bilaterally, chest nontender. Heart: S1S2, regular, negative for clicks, rubs, or JVD. Abdomen: Soft, nondistended, nontender. Negative for masses or hepatosplenomegaly. Negative for costovertebral tenderness. Pelvis: Stable nontender. Genitourinary: Deferred. Rectal: Deferred. Extremities: Atraumatic, negative for cords or calf pain. Neurovascular unremarkable. Neuro: Awake, alert, oriented. Cranial nerves II through XII unremarkable. Cerebellum unremarkable. Motor and sensory unremarkable throughout. Exam nonfocal. Diagnostics: [Rapid strep] Therapeutics: [Claritin [id number] daily ] Impression: biLateral ear effusion] Definitive disposition and diagnosis as appropriate pending reevaluation and review of above. throat Pain Score (Numeric/FACES): 3 - Related Data Allergies Allergy/AdvReac Type Severity Reaction Status Date / Time amoxicillin Allergy Hives Verified 07/11/17 15:10 Home Meds: Home Meds Vit W-Ca,Fe,FA(<1 mg) [ Vitamins] 1 each PO DAILY 12/18/16 [ History] Past Medical History - Past Health History Medical/Surgical History: Denies Medical/Surgical History HEENT History: Reports: None Cardiovascular History: Reports: None Other Cardiovascular History: HTN with two previous pregnancies Respiratory History: Reports: None Gastrointestinal History: Reports: None Other Gastrointestinal History: heartburn during Genitourinary History: Reports: None Other Genitourinary History: Kidney infection with previous CAREERS COUNSELLOR History: Reports: , Other (See Below) Other OB/BYN History: had IUD removed today in surgery Musculoskeletal History: Reports: None Neurological History: Reports: None Psychiatric History: Reports: None Endocrine/Metabolic History: Reports: Obesity/BMI 30+ Hematologic History: Reports: None Immunologic History: Reports: None Oncologic (Cancer) History: Reports: None Dermatologic History: Reports: None - Infectious Disease History Infectious Disease History: Reports: Chicken Pox - Past Surgical History Head Surgeries/Procedures: Reports: None Female Surgical History: Reports: Section - History Comment History Comment: etoh "occasional" Social & Family History - Family History Family Medical History: Noncontributory - Tobacco Use Smoking Status *Q: Never Smoker Second Hand Smoke Exposure: No - Caffeine Use Caffeine Use: Reports: None - Recreational Drug Use Recreational Drug Use: No ED ROS GENERAL - Review of Systems Review Of Systems: ROS reveals no pertinent complaints other than HPI. ED EXAM, GENERAL - Physical Exam Exam: See Below Course - Vital Signs Last Recorded V/S: Last Vital Signs Temp 97.0 F 07/11/17 15:10 Pulse 71 07/11/17 15:10 Resp 18 07/11/17 15:10 BP 110/77 07/11/17 15:10 Pulse Ox 97 07/11/17 15:10 - Orders/Labs/Meds Orders: Active Orders 24 hr Category Date Time Status CULTURE STREP A CONFIRMATION [RM] Stat Lab 07/11/17 15:05 Results STREP SCRN A RAPID W CULT CONF [RM] Stat Lab 07/11/17 15:05 Ordered Departure - Departure Time of Disposition: 16:21 Disposition: Home, Self-Care 01 Condition: Good Clinical Impression: Dysfunction of left eustachian tube - Discharge Information Referrals: PCP,Unknown [Primary Care Provider] - Forms: ED Department Discharge Additional Instructions: [id number] symptomatic therapy such as ibuprofen or Tylenol Claritin daily may benefit We will follow culture on your strep screen. Cultures all positive we will provide antibiotic at that time Follow-up with primary care as needed The following information is given to patients seen in the emergency department who are being discharged to home. This information is to outline your options for follow-up care. We provide all patients seen in our emergency department with a follow-up referral. The need for follow-up, as well as the timing and circumstances, are variable depending upon the specifics of your emergency department visit. If you don't have a primary care physician on staff, we will provide you with a referral. We always advise you to contact your personal physician following an emergency department visit to inform them of the circumstance of the visit and for follow-up with them and/or the need for any referrals to a consulting specialist. The emergency department will also refer you to a specialist when appropriate. This referral assures that you have the opportunity for follow-up care with a specialist. All of these measure are taken in an effort to provide you with optimal care, which includes your follow-up. Under all circumstances we always encourage you to contact your private physician who remains a resource for coordinating your care. When calling for follow-up care, please make the office aware that this follow-up is from your recent emergency room visit. If for any reason you are refused follow-up, please contact the [facility] emergency department at and asked to speak to the emergency department charge nurse. - My Orders Last 24 Hours: My Active Orders 07/11/17 15:05 CULTURE STREP A CONFIRMATION [RM] Stat STREP SCRN A RAPID W CULT CONF [RM] Stat - Assessment/Plan Last 24 Hours: My Active Orders 07/11/17 15:05 CULTURE STREP A CONFIRMATION [RM] Stat STREP SCRN A RAPID W CULT CONF [RM] Stat
[2017-07-11 16:55] VITALS: BP 113/68
== END 2017-07-11 16:30 | disposition home or self-care (01) ==
LOC: MW.ED 14:59
DX: H69.92 Unspecified Eustachian tube disorder, left ear (principal); E66.9 Obesity, unspecified; I10 Essential (primary) hypertension; J02.9 Acute pharyngitis, unspecified; Z68.28 Body mass index [BMI] 28.0-28.9, adult; Z88.1 Allergy status to other antibiotic agents
CPT/HCPCS: 87081; 87880; 99283

== ENCOUNTER 2017-12-09 04:00 | Observation (INO) | payer MEDICAID, OTHER ==
[2017-12-09] MEDS ORDERED: HYDROmorphone 1 MG/ML Syringe ONE (04:06)
[2017-12-09] MEDS ORDERED: Ondansetron 4 MG/2 ML SDV ONE (04:07)
[2017-12-09] MEDS ORDERED: Morphine 2 MG/ML Syringe ONE (05:05)
[2017-12-09] MEDS ORDERED: Diphtheria,Pertussis(Acell),Tetanus Vaccine 0.5 ML Syringe ONE (05:23)
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
[2017-12-09] MEDS ORDERED: HYDROmorphone 1 MG/ML Syringe IVPUSH ONE (06:39)
[2017-12-09] MEDS ORDERED: Morphine 4 MG/ML Syringe IVPUSH ONE (06:40)
[2017-12-09] MEDS ORDERED: Ondansetron 4 MG/2 ML SDV IVPUSH ONE (06:40)
[2017-12-09] MEDS ORDERED: Sodium Chloride 0.9% 1,000 ML IV ONE (06:40)
[2017-12-09] MEDS ORDERED: Morphine 2 MG/ML Syringe IVPUSH ONE ×2 (06:41→06:52)
--- NOTE | 2017-12-09 09:12 | PCM.SN ---
- Free Text/Narrative Note: pt seen, chart reviewed; admitted for trauma observation due to amnesia; [id number]
[2017-12-09 10:03] LABS: CHLORIDE,CL 109 mmol/L (98-107); SODIUM,NA 146 mmol/L (136-145)
[2017-12-09] MEDS: Ketorolac 15 MG/ML SDV IVPUSH PRN ×2 (11:21→20:21)
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
[2017-12-09] MEDS ORDERED: HYDROmorphone 2 MG Tab PO PRN ×2 (15:29→15:53)
--- NOTE | 2017-12-09 15:39 | PCM.SN ---
- Free Text/Narrative Note: toradol is not adequate for pain control; and pt remarked, morphine allergy is not 'true' allergy, and pt took it in ED, worked; switched to dilaudid 2 mg po q6 prn pain
[2017-12-10 04:54] VITALS: BP 115/76
[2017-12-10] MEDS: Ketorolac 15 MG/ML SDV IVPUSH PRN (07:00)
== END 2017-12-10 10:04 | disposition home or self-care (01) ==
LOC: MW.ED 04:00 → MW.MS 06:14
PROVIDERS: ADMIT Surgery; ATTEND Surgery
DX: S40.012A Contusion of left shoulder, initial encounter (principal); S00.83XA Contusion of other part of head, initial encounter; M54.2 Cervicalgia; M54.6 Pain in thoracic spine; M79.651 Pain in right thigh; R41.2 Retrograde amnesia; E66.9 Obesity, unspecified; Z79.899 Other long term (current) drug therapy; Z88.1 Allergy status to other antibiotic agents; V29.9XXA Motorcycle rider (driver) (passenger) injured in unspecified traffic accident, initial encounter; Z68.33 Body mass index [BMI] 33.0-33.9, adult
CPT/HCPCS: 36415; 70450; 71260; 72125; 73030; 73552; 73630; 74177; 80053; 84703; 85025; 90471; 90715; 93005; 96361; 96374; 96375; 96376; 99285; A9270; G0378; G0390; G0480; J1170; J1885; J2270; J2405; J7040; 72128-26; 72131-26

== ENCOUNTER 2019-12-04 17:19 | Emergency (ER) | payer OTHER ==
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
[2019-12-05 02:11] VITALS: BP 118/74; PULSE 79
== END 2019-12-04 20:42 | disposition home or self-care (01) ==
LOC: MW.ED 17:19
DX: J02.9 Acute pharyngitis, unspecified (principal); I10 Essential (primary) hypertension; E66.9 Obesity, unspecified; Z68.27 Body mass index [BMI] 27.0-27.9, adult; Z20.828 Contact with and (suspected) exposure to other viral communicable diseases; Z88.1 Allergy status to other antibiotic agents; Z88.5 Allergy status to narcotic agent
CPT/HCPCS: 87081; 87880-QW; 99282; 99283; U0002

== ENCOUNTER 2020-09-18 16:14 | Emergency (ER) | payer MEDICAID, OTHER ==
[2020-09-18] MEDS ORDERED: Ketorolac 30 MG/ML SDV IM ONE (16:39)
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
[2020-09-18 17:43] VITALS: BP 128/72; PULSE 74
--- NOTE | 2020-09-18 18:34 | CR ---
For Patients: As a result of the Cures Act, medical imaging exams and procedure reports are released immediately into your electronic medical record. You may view this report before your referring provider. If you have questions, please contact your health care provider. INDICATION: Injury. TECHNIQUE: Two views of the cervical spine. COMPARISON: 12/09/2017. IMPRESSION: There is straightening of the normal lordotic cervical spine curvature. No vertebral body malalignment or facet joint subluxation or dislocation is identified. Disc spaces are well maintained. Facet joints are unremarkable. No fracture is seen. Dictated by Maurilio Babcock MD @ 09/18/2020 6:29:33 PM Dictated by: Maurilio Babcock MD @ 09/18/2020 18:31:36 (Electronically Signed)
--- NOTE | 2020-09-18 18:34 | CR ---
INDICATION: Injury. TECHNIQUE: Two views of the lumbar spine. COMPARISON: Correlation is made with a CT of the lumbar spine December 09, 2017. FINDINGS: Five lumbar vertebral bodies normally aligned. Partial sacralization of L5 best appreciated on the right. No compression fracture, acute malalignment, or degenerative disc disease. IMPRESSION: Negative two-view lumbar spine. Dictated by Jose Good MD @ 09/18/2020 6:33:[address] Jose Good @ Sep 18 2020 6:33PM
--- NOTE | 2020-09-18 18:36 | CR ---
For Patients: As a result of the Cures Act, medical imaging exams and procedure reports are released immediately into your electronic medical record. You may view this report before your referring provider. If you have questions, please contact your health care provider. INDICATION: Injury. TECHNIQUE: Two views of the thoracic spine. COMPARISON: 12/09/2017. IMPRESSION: The curvature and alignment of the thoracic spine are within normal limits. No fracture is identified. Disc spaces are well maintained. Dictated by Maurilio Babcock MD @ 09/18/2020 6:34:52 PM Dictated by: Maurilio Babcock MD @ 09/18/2020 18:35:03 (Electronically Signed)
== END 2020-09-18 17:44 | disposition home or self-care (01) ==
LOC: MW.ED 16:14
DX: S30.0XXA Contusion of lower back and pelvis, initial encounter (principal); S20.229A Contusion of unspecified back wall of thorax, initial encounter; E66.9 Obesity, unspecified; Z68.32 Body mass index [BMI] 32.0-32.9, adult; Z88.0 Allergy status to penicillin; Z79.899 Other long term (current) drug therapy; W18.30XA Fall on same level, unspecified, initial encounter
CPT/HCPCS: 72040; 72070; 72100; 96372; 99283; J1885

== ENCOUNTER 2020-11-18 21:05 | Emergency (ER) | payer MEDICAID ==
[2020-11-18] MEDS ORDERED: Ketorolac 30 MG/ML SDV IM ONE (23:44)
--- NOTE | 2020-11-18 23:48 | EDM.PDOC ---
ED HPI GENERAL MEDICAL PROBLEM - General Chief Complaint: Back Pain or Injury Stated Complaint: BACK PAIN Time Seen by Provider: 11/18/20 23:22 Source of Information: Reports: Patient History Limitations: Reports: No Limitations - History of Present Illness INITIAL COMMENTS - FREE TEXT/NARRATIVE: 25-year-old female presents with low back pain. 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 She also did heavy lifting over the past couple days. She noted burning moderate pain nonradiating localized to the lumbar spine over the past 2 days. She denies fever, chills, nausea, vomiting, urinary or fecal incontinence, lower extremity numbness or weakness or trauma. Denies history of IVDA. ROS: A 10-point review of systems, other than pertinent positives and negatives as stated per HPI, is otherwise negative Past medical history: No additional pertinent history Past Surgical history: No additional pertinent history Social history: No additional pertinent history Family history: No additional pertinent history PHYSICAL EXAM General: AOx4, GCS = 15, No distress HEENT: dry mucous membrane Neck: supple, no meningismus, no Kernig or Brudzinski Cardiac: S1S2 RRR Respiratory: CTAB, no crackles or rales, no wheezing Abdomen: Soft, nontender Back: nontender to C/T/L-spine. Paraspinal tenderness and swelling to the lumbar region. Musculoskeletal: NVI distally, no deformity Neuro: No focal deficits, CN 2 - 12 WNL. Bilateral Back Pain Score (Numeric/FACES): 7 - Related Data Allergies Allergy/AdvReac Type Severity Reaction Status Date / Time amoxicillin Allergy Hives Verified 09/18/20 16:31 Home Meds: Home Meds methocarbamoL [Robaxin] 1,000 mg PO TID PRN #15 tab 09/18/20 [Rx] methylPREDNISolone [Medrol Dose Pack] 4 mg PO DAILY #21 tab 09/18/20 [Rx] Cyclobenzaprine/Tens Unit/Elec [Cyclotens Starter Richard] 10 mg MC TID PRN #15 combo..pkg 11/18/20 [Rx] Ibuprofen 800 mg PO Q6HR #15 tablet 11/18/20 [Rx] Past Medical History - Past Health History Medical/Surgical History: Denies Medical/Surgical History HEENT History: Reports: None Cardiovascular History: Reports: None Other Cardiovascular History: HTN with two previous pregnancies Respiratory History: Reports: None Gastrointestinal History: Reports: None Other Gastrointestinal History: heartburn during Genitourinary History: Reports: None Other Genitourinary History: Kidney infection with previous 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: , 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 Below) 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 Musculoskeletal History: Reports: None Neurological History: Reports: None Psychiatric History: Reports: None Endocrine/Metabolic History: Reports: Obesity/BMI 30+ Hematologic History: Reports: None Immunologic History: Reports: None Oncologic (Cancer) History: Reports: None Dermatologic History: Reports: None - Infectious Disease History Infectious Disease History: Reports: Chicken Pox - Past Surgical History Head Surgeries/Procedures: Reports: None HEENT Surgical History: Reports: None Cardiovascular Surgical History: Reports: None Female Surgical History: Reports: Section - History Comment History Comment: etoh "occasional" Social & Family History - Family History Family Medical History: No Pertinent Family History - Tobacco Use Tobacco Use Status *Q: Current Every Day Tobacco User Years of Tobacco use: 1 Packs/Tins Daily: 0.5 - Caffeine Use Caffeine Use: Reports: None - Recreational Drug Use Recreational Drug Use: No ED ROS GENERAL - Review of Systems Review Of Systems: See Below (see dictation) ED EXAM, GENERAL - Physical Exam Exam: See Below (see dictation) Course - Vital Signs Last Recorded V/S: Last Vital Signs Temp 97.0 F 11/18/20 21:32 Pulse 105 H 11/18/20 21:32 Resp 20 11/18/20 21:32 BP 133/88 11/18/20 21:32 Pulse Ox 96 11/18/20 21:32 - Orders/Labs/Meds Orders: Active Orders 24 hr Category Date Time Status HCG QUALITATIVE,URINE [URCHEM] Stat Lab 11/18/20 22:41 Ordered URINALYSIS W/MICROSCOPIC [UA W/MICROSCOPIC] [URIN] Stat Lab 11/18/20 22:41 Ordered Ketorolac [Toradol] Med 11/18/20 23:44 Once 30 mg IM ONETIME ONE - Re-Assessments/Exams Free Text/Narrative Re-Assessment/Exam: 11/18/20 23:46 After IM Toradol in the ER, the patient improved and is currently stable for discharge. I performed a repeat exam and did not appreciate new abnormal findings. Patient exhibits normal vital signs and has a normal gait on road test. I advised the patient to return to the ER for reevaluation if symptoms worsened, including fever, worsening pain, or any other worrisome symptoms. I instructed the patient to follow up with their PCP within 2-3 days. MEDICAL DECISION MAKING: I reviewed the patients past medical records, lab and radiographic findings. I discussed the case with the patient. My differential d iagnosis included: Musculoskeletal strain. Patient's back pain is suggestive of musculoskeletal strain. There are no complaints of urinary or fecal incontinence, focal numbness or weakness. The patient has a normal gait in the ER. There is no evidence of fever, IV drug use, recent back surgery, or immunocompromised state. I do not suspect caude equine syndrome or cord compression which would warrant further imaging. Departure - Departure Time of Disposition: 23:47 Disposition: Home, Self-Care 01 Clinical Impression: Low back strain - Discharge Information *PRESCRIPTION DRUG MONITORING PROGRAM REVIEWED*: Not Applicable *COPY OF PRESCRIPTION DRUG MONITORING REPORT IN PATIENT JULIANNA: Not Applicable Prescriptions: Cyclobenzaprine/Tens Unit/Elec [Cyclotens Starter Richard] 10 mg MC TID PRN #15 combo..pkg PRN Reason: Muscle Spasm Ibuprofen 800 mg PO Q6HR #15 tablet Instructions: Lumbosacral Strain Referrals: PCP,None [Primary Care Provider] - Additional Instructions: The need for follow-up, as well as the timing and circumstances, are variable depending upon the specifics of your emergency department visit. If you don't have a primary care physician on staff, we will provide you with a referral. We always advise you to contact your personal physician following an emergency department visit to inform them of the circumstance of the visit and for follow-up with them and/or the need for any referrals to a consulting specialist. The emergency department will also refer you to a specialist when appropriate. This referral assures that you have the opportunity for follow-up care with a specialist. All of these measure are taken in an effort to provide you with optimal care, which includes your follow-up. Under all circumstances we always encourage you to contact your private physician who remains a resource for coordinating your care. When calling for follow-up care, please make the office aware that this follow-up is from your recent emergency room visit. If for any reason you are refused follow-up, please contact the [facility] Emergency Department at and asked to speak to the emergency department charge nurse. If you do not have a primary care doctor, please follow up with the clinics below within 3-5 days. [facility] - Primary Care [address] [place] [id number] [address] Sepsis Event Note (ED) - Focused Exam Vital Signs: Vital Signs Temp Pulse Resp BP Pulse Ox 11/18/20 21:32 97.0 F 105 H 20 133/88 96 - My Orders Last 24 Hours: My Active Orders 11/18/20 22:41 HCG QUALITATIVE,URINE [URCHEM] Stat URINALYSIS W/MICROSCOPIC [UA W/MICROSCOPIC] [URIN] Stat 11/18/20 23:44 Ketorolac [Toradol] 30 mg IM ONETIME ONE - Assessment/Plan Last 24 Hours: My Active Orders 11/18/20 22:41 HCG QUALITATIVE,URINE [URCHEM] Stat URINALYSIS W/MICROSCOPIC [UA W/MICROSCOPIC] [URIN] Stat 11/18/20 23:44 Ketorolac [Toradol] 30 mg IM ONETIME ONE
[2020-11-19 03:54] VITALS: BP 110/78; PULSE 88
== END 2020-11-19 00:20 | disposition home or self-care (01) ==
LOC: MW.ED 21:05
DX: S39.012A Strain of muscle, fascia and tendon of lower back, initial encounter (principal); I10 Essential (primary) hypertension; E66.9 Obesity, unspecified; Z72.0 Tobacco use; Z88.1 Allergy status to other antibiotic agents; Z68.31 Body mass index [BMI] 31.0-31.9, adult; X50.0XXA Overexertion from strenuous movement or load, initial encounter
CPT/HCPCS: 81001; 81025; 96372; 99283; J1885

== ENCOUNTER 2021-07-25 23:52 | Emergency (ER) | payer MEDICAID ==
[2021-07-26] MEDS ORDERED: Acetaminophen/HYDROcodone 325-5 MG Tab PO ONE ×3 (00:28→04:24)
[2021-07-26] MEDS ORDERED: Morphine 4 MG/ML VIAL IM ONE (02:29)
[2021-07-26] MEDS ORDERED: Clindamycin HCl 150 MG Cap PO STA (04:21)
[2021-07-26 04:30] VITALS: BP 127/84; PULSE 88
== END 2021-07-26 04:46 | disposition home or self-care (01) ==
LOC: MW.ED 23:52
DX: S02.601A Fracture of unspecified part of body of right mandible, initial encounter for closed fracture (principal); S02.602A Fracture of unspecified part of body of left mandible, initial encounter for closed fracture; I10 Essential (primary) hypertension; E66.9 Obesity, unspecified; Z68.30 Body mass index [BMI] 30.0-30.9, adult; Z79.899 Other long term (current) drug therapy; Z88.0 Allergy status to penicillin; Y04.0XXA Assault by unarmed brawl or fight, initial encounter
CPT/HCPCS: 70450; 70486; 72125; 72128; 72131; 96372; 99285; A9270; J2270

== ENCOUNTER 2021-09-24 13:01 | Emergency (ER) | payer MEDICAID ==
[2021-09-24 13:30] VITALS: BP 141/96; PULSE 67
[2021-09-24 14:20] LABS: CARBON DIOXIDE,CO2 24.4 mmol/L (21.0-32.0); POTASSIUM,K 4.1 mmol/L (3.5-5.1)
[2021-09-24] MEDS: Morphine 4 MG/ML VIAL IVPUSH ONE (14:27)
[2021-09-24] MEDS: Ketorolac 30 MG/ML SDV IVPUSH ONE (14:27)
[2021-09-24] MEDS: Ondansetron 4 MG/2 ML SDV IVPUSH ONE (14:27)
[2021-09-24] MEDS: Sodium Chloride 0.9% 1,000 ML IV ONE (14:27)
== END 2021-09-24 16:30 | disposition home or self-care (01) ==
LOC: MW.ED 13:01
DX: N39.0 Urinary tract infection, site not specified (principal); I10 Essential (primary) hypertension; E66.9 Obesity, unspecified; Z68.32 Body mass index [BMI] 32.0-32.9, adult; Z88.0 Allergy status to penicillin; Z20.822 Contact with and (suspected) exposure to COVID-19
CPT/HCPCS: 36415; 74176; 80053; 81001; 83690; 84703; 85025; 87086; 87635; 96361; 96374; 96375; 99284; J1885; J2270; J2405; J7030; 99283; U0002

== ENCOUNTER 2021-10-21 12:08 | Emergency (ER) | payer MEDICAID ==
[2021-10-21] MEDS ORDERED: Ketorolac 60 MG/2 ML SDV IM ONE (15:00)
[2021-10-21 15:01] VITALS: BP 121/70; PULSE 102
== END 2021-10-21 16:21 ==
LOC: MW.ED 12:08
DX: T42.4X1A Poisoning by benzodiazepines, accidental (unintentional), initial encounter (principal); I10 Essential (primary) hypertension; E66.9 Obesity, unspecified; Z68.30 Body mass index [BMI] 30.0-30.9, adult; Z79.899 Other long term (current) drug therapy
CPT/HCPCS: 93005; 93010; 99284; 99285

== ENCOUNTER 2021-10-21 18:20 | Emergency (ER) | payer OTHER, MEDICAID ==
[2021-10-21 20:38] VITALS: BP 107/59; PULSE 68
== END 2021-10-21 20:36 ==
LOC: MW.ED 18:20
DX: S00.93XA Contusion of unspecified part of head, initial encounter (principal); I10 Essential (primary) hypertension; E66.9 Obesity, unspecified; Z68.31 Body mass index [BMI] 31.0-31.9, adult; W22.8XXA Striking against or struck by other objects, initial encounter
CPT/HCPCS: 70450; 70450-26; 72125; 72125-26; 93005; 99284

== ENCOUNTER 2021-10-22 06:31 | Emergency (ER) | payer MEDICAID, OTHER ==
[2021-10-22] MEDS ORDERED: Ibuprofen 400 MG Tab PO ONE (07:48)
[2021-10-22] MEDS ORDERED: Acetaminophen 325 MG Tab PO ONE (07:48)
[2021-10-22 08:36] LABS: CARBON DIOXIDE,CO2 25.7 mmol/L (21.0-32.0); POTASSIUM,K 3.5 mmol/L (3.5-5.1)
[2021-10-22 13:02] VITALS: PULSE 76
[2021-10-22 13:04] VITALS: BP 114/77
== END 2021-10-22 13:02 ==
LOC: MW.ED 06:31
DX: R45.851 Suicidal ideations (principal); E66.9 Obesity, unspecified; Z68.30 Body mass index [BMI] 30.0-30.9, adult; Z88.0 Allergy status to penicillin; Z20.822 Contact with and (suspected) exposure to COVID-19
CPT/HCPCS: 36415; 80053; 80305; 81003; 84443; 84703; 85025; 87635; 99285; A9270; U0002

== ENCOUNTER 2021-10-22 21:36 | Emergency (ER) | payer MEDICAID ==
[2021-10-22 23:43] LABS: ACETAMINOPHEN <2.0 ug/mL; BLOOD UREA NITROGEN,BUN 8 mg/dL (7.0-18.0); CARBON DIOXIDE,CO2 29.4 mmol/L (21.0-32.0); CHLORIDE,CL 107 mmol/L (98-107); GLUCOSE RANDOM 109 mg/dL (74-106); POTASSIUM,K 3.8 mmol/L (3.5-5.1); SODIUM,NA 143 mmol/L (136-145)
[2021-10-22 23:44] LABS: ESTIMATED GFR 121 mL/min (>60)
[2021-10-23 04:40] VITALS: BP 133/81; PULSE 84
== END 2021-10-23 01:10 | disposition home or self-care (01) ==
LOC: MW.ED 21:36
DX: T42.4X1A Poisoning by benzodiazepines, accidental (unintentional), initial encounter (principal); I10 Essential (primary) hypertension; E66.9 Obesity, unspecified; Z88.0 Allergy status to penicillin; Z68.31 Body mass index [BMI] 31.0-31.9, adult
CPT/HCPCS: 36415; 80053; 80143; 80179; 80307; 85025; 93005; 99283; 99284

== ENCOUNTER 2022-02-06 08:08 | Emergency (ER) | payer MEDICAID ==
[2022-02-06] MEDS ORDERED: Ibuprofen 600 MG Tab PO ONE (08:37)
[2022-02-06 08:50] VITALS: BP 116/62; PULSE 72
== END 2022-02-06 08:52 | disposition home or self-care (01) ==
LOC: MW.ED 08:08
DX: R59.0 Localized enlarged lymph nodes (principal); R10.2 Pelvic and perineal pain; I10 Essential (primary) hypertension; E66.9 Obesity, unspecified; Z88.0 Allergy status to penicillin; Z68.27 Body mass index [BMI] 27.0-27.9, adult
CPT/HCPCS: 99283; A9270

== ENCOUNTER 2022-06-15 16:29 | Emergency (ER) | payer MEDICAID ==
[2022-06-15 18:15] VITALS: BP 107/54; PULSE 93
== END 2022-06-15 23:30 | disposition left against medical advice (07) ==
LOC: MW.ED 16:29
DX: Z53.21 Procedure and treatment not carried out due to patient leaving prior to being seen by health care provider (principal)

== ENCOUNTER 2022-06-16 08:10 | Emergency (ER) | payer MEDICAID ==
[2022-06-16] MEDS ORDERED: traMADol 50 MG Tab PO ONE (09:23)
[2022-06-16] MEDS ORDERED: Ibuprofen 600 MG Tab PO ONE (09:23)
[2022-06-16] MEDS ORDERED: Cephalexin 500 MG Cap PO ONE (10:43)
[2022-06-16 11:22] VITALS: BP 107/73; PULSE 60
== END 2022-06-16 11:25 | disposition home or self-care (01) ==
LOC: MW.ED 08:10
DX: S66.012A Strain of long flexor muscle, fascia and tendon of left thumb at wrist and hand level, initial encounter (principal); T74.11XA Adult physical abuse, confirmed, initial encounter; S40.012A Contusion of left shoulder, initial encounter; S20.219A Contusion of unspecified front wall of thorax, initial encounter; I10 Essential (primary) hypertension; E66.9 Obesity, unspecified; Z68.27 Body mass index [BMI] 27.0-27.9, adult; Z88.0 Allergy status to penicillin; Z98.890 Other specified postprocedural states; Z79.899 Other long term (current) drug therapy; X99.0XXA Assault by sharp glass, initial encounter
CPT/HCPCS: 29125; 71046; 73030; 73130; 99283; A9270

== ENCOUNTER 2022-09-20 14:06 | Emergency (ER) | payer BC, MEDICAID ==
[2022-09-20 14:15] VITALS: PULSE 83
[2022-09-20 14:59] VITALS: BP 129/83
== END 2022-09-20 14:58 | disposition home or self-care (01) ==
LOC: MW.ED 14:06
DX: Z32.02 Encounter for pregnancy test, result negative (principal); Z88.0 Allergy status to penicillin; Z88.2 Allergy status to sulfonamides; Z98.890 Other specified postprocedural states
CPT/HCPCS: 36415; 84703; 99282

== ENCOUNTER 2023-03-30 23:06 | Emergency (ER) | payer SELFPAY ==
[2023-03-30] MEDS ORDERED: Lidocaine 1% with EPINEPHrine 1:200,000 30 ML SDV INFILT STA (23:35)
[2023-03-31] MEDS ORDERED: Ibuprofen 400 MG Tab PO ONE (00:33)
[2023-03-31 00:42] VITALS: BP 123/93; PULSE 102
== END 2023-03-31 00:42 | disposition home or self-care (01) ==
LOC: MW.ED 23:06
DX: S71.111A Laceration without foreign body, right thigh, initial encounter (principal); Z88.0 Allergy status to penicillin; W26.0XXA Contact with knife, initial encounter
CPT/HCPCS: 12001; 73552; 99283; A9270; J3490

== ENCOUNTER 2023-10-01 19:32 | Emergency (ER) | payer SELFPAY ==
[2023-10-01] MEDS: Lidocaine 1% 5 ML VIAL INJECT ONE (19:46)
[2023-10-01] MEDS: Acetaminophen/oxyCODONE 325-5 MG Tab PO ONE (20:05)
[2023-10-01] MEDS: Cephalexin 500 MG Cap PO ONE (21:11)
[2023-10-01 23:19] VITALS: BP 148/95; PULSE 81
== END 2023-10-01 22:06 | disposition home or self-care (01) ==
LOC: MW.ED 19:32
DX: S61.411A Laceration without foreign body of right hand, initial encounter (principal); Z79.899 Other long term (current) drug therapy; Z88.0 Allergy status to penicillin; Z75.8 Other problems related to medical facilities and other health care; W22.09XA Striking against other stationary object, initial encounter
CPT/HCPCS: 12001; 73130; 73140; 99283; A9270; J3490

== ENCOUNTER 2023-12-27 22:20 | Emergency (ER) | payer BC | END 2023-12-27 23:20 | disposition left against medical advice (07) | LOC: MW.ED 22:20 | DX: Z53.21 Procedure and treatment not carried out due to patient leaving prior to being seen by health care provider (principal) ==

== ENCOUNTER 2024-02-27 06:32 | Emergency (ER) | payer BC ==
[2024-02-27] MEDS: Lidocaine 4% 1 each Patch TOP ONE (06:54)
[2024-02-27] MEDS: Acetaminophen 325 MG Tab PO ONE (06:55)
[2024-02-27] MEDS: Ketorolac 30 MG/ML SDV IM ONE (07:12)
[2024-02-27 07:18] VITALS: BP 142/85; PULSE 85
== END 2024-02-27 07:45 | disposition home or self-care (01) ==
LOC: MW.ED 06:32
DX: M25.511 Pain in right shoulder (principal); M54.2 Cervicalgia; Z75.8 Other problems related to medical facilities and other health care; Z88.0 Allergy status to penicillin
CPT/HCPCS: 73030; 96372; 99283; A9270; J1885

== ENCOUNTER 2024-04-28 17:30 | Emergency (ER) | payer SELFPAY | END 2024-04-28 19:11 | disposition left against medical advice (07) | LOC: MW.ED 17:30 | DX: Z53.21 Procedure and treatment not carried out due to patient leaving prior to being seen by health care provider (principal) ==